=== PATIENT | male | born 1960 | race African-American/Black ===

== ENCOUNTER 2018-03-26 10:59 | Inpatient (IN) ==
[2018-03-30 11:56] VITALS: BP 112/73
== END 2018-03-30 14:30 | disposition home or self-care (01) | DRG 190 ==
LOC: N.ED 10:59 → N.2E 13:57

== ENCOUNTER 2018-05-06 18:27 | Inpatient (IN) ==
[2018-05-06 19:05] LABS: Eosinophils # 0.1 10*3/uL (0.0-0.87); Eosinophils % 1.3 % (0.00-10.9); Hematocrit 47.3 VOL% (42.0-52.0); Hemoglobin 15.9 GM/DL (14.0-18.0); Immature Granulocytes % 0.3 %; Immature Granulocytes Absolute 0.01 #; Lymphocytes # 1.7 10*3/uL (1.4-4.0); Lymphocytes % 42.1 % (21.2-54.2); Mean Corpuscular HGB Conc 33.6 GM/DL (32-36); Mean Corpuscular Hemoglobin 35 PG (27-34); Mean Corpuscular Volume 102.8 FL (87-102); Mean Platelet Volume 9.6 FL (9.6-12.0); Monocytes # 0.8 10*3/uL (0.11-0.8); Monocytes % 20.9 % (1.7-12.7); Neutrophils # 1.4 10*3/uL (1.4-7.4); Neutrophils % 34.4 % (38.7-73.9); Platelet Count 131 T/CUMM (130-400)
[2018-05-06] MEDS ORDERED: ALBUTEROL NEB SOLN 5 MG/ML 20 ML/BOTTLE CONT NEB STA (19:15)
[2018-05-06] MEDS ORDERED: IPRATROPIUM 500 MCG/2.5 ML NEB RESP TX STA (19:15)
[2018-05-06 19:16] LABS: INR 1.1; PT Patient Result 11.1 SECS; Partial Thromboplastin Time 22.2 SECS (0-40)
[2018-05-06 19:29] LABS: Bilirubin,Total 0.5 MG/DL (0.2-1.0); Osmolality,Calculated 271.8 MOS/KG (273-304); Potassium 3.9 MMOL/L (3.5-5.1); Troponin I Only 0.023 NG/ML (0.00-0.045)
[2018-05-06 19:35] LABS: Lymphocytes 48 % (20-55); Platelet Estimate Adequate; Segmented Neutrophils 32 % (50-85); Total Cells Counted 100
[2018-05-06] MEDS ORDERED: methylPREDNISolone SOD SUC 125 MG/2 ML VIAL IV STA (19:56)
[2018-05-06] MEDS ORDERED: LEVOFLOXACIN INJ 750 MG in PREMIX 1 EACH IV STA (19:56)
[2018-05-06] MEDS ORDERED: ACETAMINOPHEN 325 MG TABLET PO PRN (21:14)
[2018-05-06] MEDS ORDERED: ONDANSETRON 4 MG/2 ML VIAL IV PRN (21:14)
[2018-05-06] MEDS ORDERED: ALBUTEROL 2.5 MG/3 ML NEB RESP TX PRN (21:14)
[2018-05-06] MEDS: ENOXAPARIN 40 MG/0.4 ML SYRINGE SUBCUT SCH (23:25)
[2018-05-07] MEDS: ALBUTEROL/IPRATROPIUM 3 ML NEB RESP TX SCH ×4 (00:03→19:50)
[2018-05-07] MEDS: methylPREDNISolone SOD SUC 40 MG/1 ML VIAL IV SCH ×3 (03:54→21:16)
[2018-05-07 07:08] LABS: Basophils % 0.3 % (0.0-0.8); Hematocrit 43.1 VOL% (42.0-52.0); Hemoglobin 14.6 GM/DL (14.0-18.0); Immature Granulocytes % 0.3 %; Immature Granulocytes Absolute 0.01 #; Lymphocytes # 0.2 10*3/uL (1.4-4.0); Lymphocytes % 6.5 % (21.2-54.2); Mean Corpuscular HGB Conc 33.9 GM/DL (32-36); Mean Corpuscular Hemoglobin 35 PG (27-34); Mean Corpuscular Volume 103.1 FL (87-102); Mean Platelet Volume 10.6 FL (9.6-12.0); Monocytes % 1.3 % (1.7-12.7); Neutrophils # 2.8 10*3/uL (1.4-7.4); Neutrophils % 91.6 % (38.7-73.9); Platelet Count 122 T/CUMM (130-400); Red Blood Count 4.18 MC/CUMM (3.8-5.5); Red Cell Distribution Width 12.7 % (9.3-17.3); White Blood Count 3.1 T/CUMM (4-12)
[2018-05-07 07:37] LABS: Albumin 3.7 G/DL (3.4-5.0); Calcium 8.7 MG/DL (8.5-10.1); Hypochromasia 1+; Lymphocytes 4 % (20-55); Nucleated Red Blood Cells 1 (0-5); Osmolality,Calculated 272.1 MOS/KG (273-304); Platelet Estimate Decreased; Segmented Neutrophils 95 % (50-85); Total Cells Counted 100; Total Protein 7.9 G/DL (6.4-8.3)
[2018-05-07] MEDS: amLODIPine 5 MG TABLET PO SCH (09:43)
[2018-05-07] MEDS: FLUTICASONE/SALMETEROL 250-50 DISKUS 14 DOSE INH SCH ×2 (09:43→21:19)
[2018-05-07] MEDS: MULTIVITAMIN (CENTRUM) TABLET PO SCH (09:43)
[2018-05-07] MEDS: FOLIC ACID 1 MG TABLET PO SCH (09:43)
[2018-05-07] MEDS: PANTOPRAZOLE 40 MG TABLET PO SCH (09:43)
[2018-05-07] MEDS: NICOTINE 21 MG/24 HR PATCH TRANSDERM PRN (09:43)
[2018-05-07] MEDS: LISINOPRIL/HCTZ 20-25 MG TABLET PO SCH (09:43)
[2018-05-07] MEDS: THIAMINE 100 MG TABLET PO SCH (09:43)
[2018-05-07] MEDS: ENOXAPARIN 40 MG/0.4 ML SYRINGE SUBCUT SCH (21:16)
[2018-05-08] MEDS: methylPREDNISolone SOD SUC 40 MG/1 ML VIAL IV SCH ×3 (03:47→20:25)
[2018-05-08 07:06] LABS: Basophils % 0.1 % (0.0-0.8); Hematocrit 45.6 VOL% (42.0-52.0); Hemoglobin 15.3 GM/DL (14.0-18.0); Immature Granulocytes % 0.4 %; Immature Granulocytes Absolute 0.07 #; Lymphocytes # 0.3 10*3/uL (1.4-4.0); Mean Corpuscular HGB Conc 33.6 GM/DL (32-36); Mean Corpuscular Hemoglobin 35 PG (27-34); Mean Corpuscular Volume 102.7 FL (87-102); Mean Platelet Volume 10.5 FL (9.6-12.0); Neutrophils # 14.6 10*3/uL (1.4-7.4); Neutrophils % 91.5 % (38.7-73.9); Platelet Count 137 T/CUMM (130-400); Red Blood Count 4.44 MC/CUMM (3.8-5.5); Red Cell Distribution Width 12.7 % (9.3-17.3); White Blood Count 15.9 T/CUMM (4-12)
[2018-05-08 07:26] LABS: Calcium 9.1 MG/DL (8.5-10.1); Osmolality,Calculated 274.8 MOS/KG (273-304); Potassium 3.9 MMOL/L (3.5-5.1)
[2018-05-08 07:51] LABS: Band Neutrophils 3 % (0-10); Lymphocytes 2 % (20-55); Platelet Estimate Decreased; Polychromasia Slight; Segmented Neutrophils 94 % (50-85); Total Cells Counted 100
[2018-05-08] MEDS: ALBUTEROL/IPRATROPIUM 3 ML NEB RESP TX SCH ×4 (07:54→20:06)
[2018-05-08] MEDS: LISINOPRIL/HCTZ 20-25 MG TABLET PO SCH (09:24)
[2018-05-08] MEDS: FOLIC ACID 1 MG TABLET PO SCH (09:25)
[2018-05-08] MEDS: amLODIPine 5 MG TABLET PO SCH (09:25)
[2018-05-08] MEDS: THIAMINE 100 MG TABLET PO SCH (09:25)
[2018-05-08] MEDS: MULTIVITAMIN (CENTRUM) TABLET PO SCH (09:25)
[2018-05-08] MEDS: PANTOPRAZOLE 40 MG TABLET PO SCH (09:25)
[2018-05-08] MEDS: FLUTICASONE/SALMETEROL 250-50 DISKUS 14 DOSE INH SCH ×2 (09:27→20:32)
[2018-05-08] MEDS: NICOTINE 21 MG/24 HR PATCH TRANSDERM PRN (09:30)
[2018-05-08] MEDS: ENOXAPARIN 40 MG/0.4 ML SYRINGE SUBCUT SCH (20:25)
[2018-05-09] MEDS: ALBUTEROL/IPRATROPIUM 3 ML NEB RESP TX SCH ×4 (00:05→20:00)
[2018-05-09] MEDS: methylPREDNISolone SOD SUC 40 MG/1 ML VIAL IV SCH ×2 (04:48→14:22)
[2018-05-09 06:44] LABS: Basophils % 0.1 % (0.0-0.8); Hematocrit 42.2 VOL% (42.0-52.0); Hemoglobin 14.3 GM/DL (14.0-18.0); Immature Granulocytes % 0.7 %; Immature Granulocytes Absolute 0.12 #; Lymphocytes # 0.2 10*3/uL (1.4-4.0); Lymphocytes % 1.5 % (21.2-54.2); Mean Corpuscular HGB Conc 33.9 GM/DL (32-36); Mean Corpuscular Hemoglobin 35 PG (27-34); Mean Corpuscular Volume 103.2 FL (87-102); Mean Platelet Volume 10.2 FL (9.6-12.0); Monocytes # 0.7 10*3/uL (0.11-0.8); Neutrophils # 15.3 10*3/uL (1.4-7.4); Neutrophils % 93.7 % (38.7-73.9); Platelet Count 124 T/CUMM (130-400); Red Blood Count 4.09 MC/CUMM (3.8-5.5); Red Cell Distribution Width 12.9 % (9.3-17.3); White Blood Count 16.4 T/CUMM (4-12)
[2018-05-09 06:58] LABS: Calcium 8.6 MG/DL (8.5-10.1); Potassium 3.7 MMOL/L (3.5-5.1)
[2018-05-09 07:25] LABS: Band Neutrophils 1 % (0-10); Hypochromasia 1+; Lymphocytes 4 % (20-55); Macrocytosis Slight; Segmented Neutrophils 91 % (50-85); Total Cells Counted 100
[2018-05-09] MEDS: LISINOPRIL/HCTZ 20-25 MG TABLET PO SCH (10:53)
[2018-05-09] MEDS: MULTIVITAMIN (CENTRUM) TABLET PO SCH (10:53)
[2018-05-09] MEDS: PANTOPRAZOLE 40 MG TABLET PO SCH (10:53)
[2018-05-09] MEDS: THIAMINE 100 MG TABLET PO SCH (10:54)
[2018-05-09] MEDS: FOLIC ACID 1 MG TABLET PO SCH (10:55)
[2018-05-09] MEDS: FLUTICASONE/SALMETEROL 250-50 DISKUS 14 DOSE INH SCH ×2 (10:59→21:47)
[2018-05-09] MEDS: ENOXAPARIN 40 MG/0.4 ML SYRINGE SUBCUT SCH (21:45)
[2018-05-10] MEDS: ALBUTEROL/IPRATROPIUM 3 ML NEB RESP TX SCH ×2 (01:54→07:11)
[2018-05-10 07:11] LABS: Basophils % 0.1 % (0.0-0.8); Eosinophils % 0.1 % (0.00-10.9); Hematocrit 44.1 VOL% (42.0-52.0); Hemoglobin 14.9 GM/DL (14.0-18.0); Immature Granulocytes % 0.4 %; Immature Granulocytes Absolute 0.04 #; Lymphocytes # 1.4 10*3/uL (1.4-4.0); Lymphocytes % 15.1 % (21.2-54.2); Mean Corpuscular HGB Conc 33.8 GM/DL (32-36); Mean Corpuscular Hemoglobin 34 PG (27-34); Mean Corpuscular Volume 101.8 FL (87-102); Mean Platelet Volume 10.6 FL (9.6-12.0); Monocytes % 11.3 % (1.7-12.7); Neutrophils # 6.6 10*3/uL (1.4-7.4); Platelet Count 128 T/CUMM (130-400); Red Blood Count 4.33 MC/CUMM (3.8-5.5); Red Cell Distribution Width 13.1 % (9.3-17.3)
[2018-05-10] MEDS: MULTIVITAMIN (CENTRUM) TABLET PO SCH (08:50)
[2018-05-10] MEDS: FOLIC ACID 1 MG TABLET PO SCH (08:50)
[2018-05-10] MEDS: THIAMINE 100 MG TABLET PO SCH (08:50)
[2018-05-10] MEDS: PANTOPRAZOLE 40 MG TABLET PO SCH (08:50)
[2018-05-10] MEDS: LISINOPRIL/HCTZ 20-25 MG TABLET PO SCH (08:50)
[2018-05-10] MEDS: FLUTICASONE/SALMETEROL 250-50 DISKUS 14 DOSE INH SCH (08:54)
[2018-05-10] MEDS ORDERED: methylPREDNISolone SOD SUC 40 MG/1 ML VIAL IV SCH (09:00)
[2018-05-10 13:14] VITALS: BP 100/64
== END 2018-05-10 13:10 | disposition home or self-care (01) | DRG 192 ==
LOC: N.ED 18:27 → N.EDINP 21:14 → N.5E 22:22
PROVIDERS: ADMIT Internal Medicine; ATTEND Internal Medicine

== ENCOUNTER 2018-09-09 13:38 | Inpatient (IN) ==
[2018-09-09] MEDS ORDERED: cefTRIAXone 1,000 MG in SODIUM CHLORIDE 0.9% 100 ML IV STA (14:05)
[2018-09-09] MEDS ORDERED: methylPREDNISolone SOD SUC 125 MG/2 ML VIAL IV STA (14:05)
[2018-09-09] MEDS ORDERED: ALBUTEROL 2.5 MG/3 ML NEB RESP TX SCH (14:30)
[2018-09-09] MEDS ORDERED: ALBUTEROL 2.5 MG/3 ML NEB RESP TX PRN (14:48)
[2018-09-09] MEDS ORDERED: methylPREDNISolone SOD SUC 40 MG/1 ML VIAL IV SCH (15:00)
[2018-09-09 15:04] LABS: ABG Base Excess 6.1 MMOL/L (-2.5-2.5); ABG HCO3 29.9 MMOL/L (20-26); ABG Oxygen Saturation 94.2 % (95-100); ABG PH 7.442 (7.35-7.45); ABG PO2 72.7 MM HG (80-95); ABG TCO2 26.4 MMOL/L (23-27)
[2018-09-09 15:08] LABS: Basophils % 0.2 % (0.0-0.8); Eosinophils % 0.1 % (0.00-10.9); Hematocrit 44.2 VOL% (42.0-52.0); Hemoglobin 14.9 GM/DL (14.0-18.0); Immature Granulocytes % 0.6 %; Immature Granulocytes Absolute 0.08 #; Lymphocytes # 0.7 10*3/uL (1.4-4.0); Lymphocytes % 5.2 % (21.2-54.2); Mean Corpuscular HGB Conc 33.7 GM/DL (32-36); Mean Corpuscular Hemoglobin 34 PG (27-34); Mean Corpuscular Volume 100.7 FL (87-102); Mean Platelet Volume 10.2 FL (9.6-12.0); Monocytes # 0.9 10*3/uL (0.11-0.8); Neutrophils # 11.4 10*3/uL (1.4-7.4); Neutrophils % 86.9 % (38.7-73.9); Platelet Count 147 T/CUMM (130-400); Red Blood Count 4.39 MC/CUMM (3.8-5.5); Red Cell Distribution Width 11.9 % (9.3-17.3); White Blood Count 13.1 T/CUMM (4-12)
[2018-09-09] MEDS ORDERED: ACETAMINOPHEN 325 MG TABLET PO PRN (15:11)
[2018-09-09] MEDS ORDERED: guaiFENesin/DM ER 600-30 MG TABLET PO PRN (15:11)
[2018-09-09] MEDS ORDERED: ONDANSETRON 4 MG/2 ML VIAL IV PRN (15:11)
[2018-09-09] MEDS ORDERED: traZODone 50 MG TABLET PO PRN (15:11)
[2018-09-09] MEDS ORDERED: hydrALAZINE 20 MG/1 ML VIAL IV STA (15:11)
[2018-09-09] MEDS ORDERED: diphenhydrAMINE CAP 25 MG CAPSULE PO PRN (15:11)
[2018-09-09] MEDS ORDERED: chlordiazePOXIDE 25 MG CAPSULE PO PRN (15:34)
[2018-09-09 15:38] LABS: Albumin 4.2 G/DL (3.4-5.0); Bilirubin,Total 0.8 MG/DL (0.2-1.0); Calcium 9.5 MG/DL (8.5-10.1); Osmolality,Calculated 267.4 MOS/KG (273-304); Potassium 4.6 MMOL/L (3.5-5.1); Total Protein 9.5 G/DL (6.4-8.3)
[2018-09-09 15:47] LABS: Risk Ratio 2.36; Thyroid Stimulating Hormone 0.574 uIU/ml (0.358-3.74); VLDL CHOLESTEROL 22.8 MG/DL
[2018-09-09] MEDS: SODIUM CHLORIDE 0.9% 1,000 ML IV SCH (16:08)
[2018-09-09] MEDS: LEVOFLOXACIN INJ 750 MG in PREMIX 1 EACH IV SCH (16:11)
[2018-09-09] MEDS: HEPARIN 5,000 UNIT/1 ML VIAL SUBCUT SCH (16:12)
[2018-09-09 16:21] LABS: Folate 8.9 NG/ML (5.4-24.0)
[2018-09-09 17:03] LABS: Apearance,Urine CLEAR (Clear); Bilirubin,Urine Negative (Negative); Blood, Urine Small mg/dL (Negative); Glucose,Urine (UA) Negative (Negative); Hyaline Casts,Urine 3 /LPF (0-3); Ketones,Urine Negative (Negative); Nitrite,Urine Negative (Negative); Protein,Urine 30 MG/DL; RBC,Urine 1 /HPF (0-4); Urine Color Yellow (Yellow); Urine Specific Gravity 1.012 (1.001-1.035); Urine Urobilinogen < 2.0 EU/DL (0.2-1.0); WBC,Urine 1 /HPF (0-6)
[2018-09-09] MEDS ORDERED: AZITHROMYCIN INJ 500 MG in SODIUM CHLORIDE 0.9% 250 ML IV SCH (18:00)
[2018-09-09] MEDS: ALBUTEROL/IPRATROPIUM 3 ML NEB RESP TX SCH (19:07)
[2018-09-09] MEDS: MONTELUKAST 10 MG TABLET PO SCH (22:05)
[2018-09-09] MEDS: methylPREDNISolone SOD SUC 125 MG/2 ML VIAL IV SCH (22:05)
[2018-09-09] MEDS: DOCUSATE SODIUM 100 MG CAPSULE PO SCH (22:05)
[2018-09-09] MEDS: FLUTICASONE/SALMETEROL 250-50 DISKUS 14 DOSE INH SCH (22:05)
[2018-09-09] MEDS: MAGNESIUM SULF RIDER 2 GM in PREMIX 1 EACH IV PRN (22:06)
[2018-09-10] MEDS: MAGNESIUM SULF RIDER 2 GM in PREMIX 1 EACH IV PRN (00:07)
[2018-09-10] MEDS: ALBUTEROL/IPRATROPIUM 3 ML NEB RESP TX SCH ×4 (01:08→19:41)
[2018-09-10] MEDS: HEPARIN 5,000 UNIT/1 ML VIAL SUBCUT SCH ×2 (01:12→08:43)
[2018-09-10 03:22] LABS: Basophils % 0.1 % (0.0-0.8); Hematocrit 41.1 VOL% (42.0-52.0); Hemoglobin 13.9 GM/DL (14.0-18.0); Immature Granulocytes % 1.2 %; Immature Granulocytes Absolute 0.28 #; Lymphocytes # 0.3 10*3/uL (1.4-4.0); Lymphocytes % 1.3 % (21.2-54.2); Mean Corpuscular HGB Conc 33.8 GM/DL (32-36); Mean Corpuscular Hemoglobin 35 PG (27-34); Mean Corpuscular Volume 102.2 FL (87-102); Mean Platelet Volume 10.6 FL (9.6-12.0); Monocytes # 0.3 10*3/uL (0.11-0.8); Monocytes % 1.4 % (1.7-12.7); Neutrophils # 22.2 10*3/uL (1.4-7.4); Platelet Count 129 T/CUMM (130-400); Red Blood Count 4.02 MC/CUMM (3.8-5.5); Red Cell Distribution Width 11.9 % (9.3-17.3); White Blood Count 23.1 T/CUMM (4-12)
[2018-09-10 04:04] LABS: Band Neutrophils 15 % (0-10); Lymphocytes 1 % (20-55); Platelet Estimate Decreased; Segmented Neutrophils 83 % (50-85); Total Cells Counted 100
[2018-09-10 04:17] LABS: Albumin 3.2 G/DL (3.4-5.0); Bilirubin,Total 0.6 MG/DL (0.2-1.0); Calcium 8.3 MG/DL (8.5-10.1); Osmolality,Calculated 270.4 MOS/KG (273-304); Potassium 4.1 MMOL/L (3.5-5.1); Total Protein 7.5 G/DL (6.4-8.3)
[2018-09-10] MEDS: methylPREDNISolone SOD SUC 125 MG/2 ML VIAL IV SCH ×4 (05:08→22:43)
[2018-09-10] MEDS: SODIUM CHLORIDE 0.9% 1,000 ML IV SCH ×2 (06:00→20:12)
[2018-09-10] MEDS: FOLIC ACID 1 MG TABLET PO SCH (08:43)
[2018-09-10] MEDS: DOCUSATE SODIUM 100 MG CAPSULE PO SCH ×2 (08:43→20:13)
[2018-09-10] MEDS: LISINOPRIL/HCTZ 20-25 MG TABLET PO SCH (08:43)
[2018-09-10] MEDS: FLUTICASONE/SALMETEROL 250-50 DISKUS 14 DOSE INH SCH ×2 (08:43→20:12)
[2018-09-10] MEDS: MULTIVITAMIN (CENTRUM) TABLET PO SCH (08:44)
[2018-09-10] MEDS: MONTELUKAST 10 MG TABLET PO SCH ×2 (08:44→20:13)
[2018-09-10] MEDS: PANTOPRAZOLE 40 MG TABLET PO SCH (08:44)
[2018-09-10] MEDS: NICOTINE 21 MG/24 HR PATCH TRANSDERM PRN (09:25)
[2018-09-10] MEDS: AZITHROMYCIN 250 MG TABLET PO SCH (11:46)
[2018-09-10 12:25] LABS: Barbiturates Screen,Urine Negative (Negative); Benzodiazepines Screen,Urine Negative (Negative); Cannabinoid Screen,Urine Negative (Negative); Opiate Screen,Urine Negative (Negative); Phencyclidine Screen,Urine Negative (Negative)
[2018-09-10] MEDS: ENOXAPARIN 40 MG/0.4 ML SYRINGE SUBCUT SCH (13:18)
[2018-09-10] MEDS: LEVOFLOXACIN INJ 750 MG in PREMIX 1 EACH IV SCH (15:05)
[2018-09-10] MEDS: OSELTAMIVIR 75 MG CAPSULE PO SCH ×2 (15:05→20:12)
[2018-09-10] MEDS: DIAZEPAM 5 MG TABLET PO PRN (19:38)
[2018-09-11] MEDS: ALBUTEROL/IPRATROPIUM 3 ML NEB RESP TX SCH ×4 (02:15→19:37)
[2018-09-11 03:26] LABS: Basophils % 0.1 % (0.0-0.8); Hematocrit 39.1 VOL% (42.0-52.0); Hemoglobin 13.4 GM/DL (14.0-18.0); Immature Granulocytes % 1.2 %; Immature Granulocytes Absolute 0.28 #; Lymphocytes # 0.4 10*3/uL (1.4-4.0); Lymphocytes % 1.6 % (21.2-54.2); Mean Corpuscular HGB Conc 34.3 GM/DL (32-36); Mean Corpuscular Hemoglobin 35 PG (27-34); Mean Corpuscular Volume 102.6 FL (87-102); Mean Platelet Volume 11.1 FL (9.6-12.0); Monocytes # 0.9 10*3/uL (0.11-0.8); Monocytes % 3.7 % (1.7-12.7); Neutrophils # 22.2 10*3/uL (1.4-7.4); Neutrophils % 93.4 % (38.7-73.9); Platelet Count 116 T/CUMM (130-400); Red Blood Count 3.81 MC/CUMM (3.8-5.5); Red Cell Distribution Width 11.9 % (9.3-17.3); White Blood Count 23.8 T/CUMM (4-12)
[2018-09-11 03:37] LABS: Calcium 8.6 MG/DL (8.5-10.1); Osmolality,Calculated 276.8 MOS/KG (273-304); Potassium 4.3 MMOL/L (3.5-5.1)
[2018-09-11 04:03] LABS: Band Neutrophils 13 % (0-10); Hypochromasia Slight; Lymphocytes 3 % (20-55); Platelet Estimate Decreased; Segmented Neutrophils 80 % (50-85); Total Cells Counted 100
[2018-09-11 04:04] LABS: Target Cells Few
[2018-09-11] MEDS: methylPREDNISolone SOD SUC 125 MG/2 ML VIAL IV SCH (05:16)
[2018-09-11] MEDS: FLUTICASONE/SALMETEROL 250-50 DISKUS 14 DOSE INH SCH ×2 (09:08→21:15)
[2018-09-11] MEDS: NICOTINE 21 MG/24 HR PATCH TRANSDERM PRN (09:09)
[2018-09-11] MEDS: AZITHROMYCIN 250 MG TABLET PO SCH (09:10)
[2018-09-11] MEDS: OSELTAMIVIR 75 MG CAPSULE PO SCH ×2 (09:10→21:14)
[2018-09-11] MEDS: DIAZEPAM 5 MG TABLET PO PRN ×2 (09:10→18:30)
[2018-09-11] MEDS: PANTOPRAZOLE 40 MG TABLET PO SCH (09:11)
[2018-09-11] MEDS: MULTIVITAMIN (CENTRUM) TABLET PO SCH (09:11)
[2018-09-11] MEDS: DOCUSATE SODIUM 100 MG CAPSULE PO SCH ×2 (09:11→21:14)
[2018-09-11] MEDS: FOLIC ACID 1 MG TABLET PO SCH (09:11)
[2018-09-11] MEDS: MONTELUKAST 10 MG TABLET PO SCH ×2 (09:11→21:14)
[2018-09-11] MEDS: LISINOPRIL/HCTZ 20-25 MG TABLET PO SCH ×2 (09:11→09:14)
[2018-09-11] MEDS: predniSONE 20 MG TABLET PO SCH (10:01)
[2018-09-11] MEDS: SODIUM CHLORIDE 0.9% 1,000 ML IV SCH (12:32)
[2018-09-11] MEDS: ENOXAPARIN 40 MG/0.4 ML SYRINGE SUBCUT SCH (12:32)
[2018-09-11] MEDS: LEVOFLOXACIN INJ 750 MG in PREMIX 1 EACH IV SCH (15:00)
[2018-09-12] MEDS: ALBUTEROL/IPRATROPIUM 3 ML NEB RESP TX SCH ×3 (00:35→14:15)
[2018-09-12 05:11] LABS: Basophils % 0.1 % (0.0-0.8); Hematocrit 37.6 VOL% (42.0-52.0); Hemoglobin 12.6 GM/DL (14.0-18.0); Immature Granulocytes % 0.8 %; Immature Granulocytes Absolute 0.14 #; Lymphocytes # 0.7 10*3/uL (1.4-4.0); Lymphocytes % 4.1 % (21.2-54.2); Mean Corpuscular HGB Conc 33.5 GM/DL (32-36); Mean Corpuscular Hemoglobin 35 PG (27-34); Mean Corpuscular Volume 103.9 FL (87-102); Mean Platelet Volume 10.5 FL (9.6-12.0); Monocytes % 5.4 % (1.7-12.7); Neutrophils # 16.2 10*3/uL (1.4-7.4); Neutrophils % 89.6 % (38.7-73.9); Platelet Count 115 T/CUMM (130-400); Red Blood Count 3.62 MC/CUMM (3.8-5.5); White Blood Count 18.1 T/CUMM (4-12)
[2018-09-12 05:39] LABS: Lymphocytes 7 % (20-55); Polychromasia Few; Segmented Neutrophils 92 % (50-85); Total Cells Counted 100
[2018-09-12 05:40] LABS: Platelet Estimate Decreased
[2018-09-12 05:58] LABS: Calcium 8.6 MG/DL (8.5-10.1); Osmolality,Calculated 278.5 MOS/KG (273-304); Potassium 3.8 MMOL/L (3.5-5.1)
[2018-09-12] MEDS: NICOTINE 21 MG/24 HR PATCH TRANSDERM PRN (10:00)
[2018-09-12] MEDS: predniSONE 20 MG TABLET PO SCH (10:00)
[2018-09-12] MEDS: MONTELUKAST 10 MG TABLET PO SCH (10:00)
[2018-09-12] MEDS: PANTOPRAZOLE 40 MG TABLET PO SCH (10:00)
[2018-09-12] MEDS: OSELTAMIVIR 75 MG CAPSULE PO SCH (10:00)
[2018-09-12] MEDS: FOLIC ACID 1 MG TABLET PO SCH (10:00)
[2018-09-12] MEDS: FLUTICASONE/SALMETEROL 250-50 DISKUS 14 DOSE INH SCH (10:00)
[2018-09-12] MEDS: DOCUSATE SODIUM 100 MG CAPSULE PO SCH (10:00)
[2018-09-12] MEDS: MULTIVITAMIN (CENTRUM) TABLET PO SCH (10:00)
[2018-09-12] MEDS: LISINOPRIL/HCTZ 20-25 MG TABLET PO SCH (10:00)
[2018-09-12] MEDS: DIAZEPAM 5 MG TABLET PO PRN (10:01)
[2018-09-12] MEDS: AZITHROMYCIN 250 MG TABLET PO SCH (10:03)
[2018-09-12] MEDS: ENOXAPARIN 40 MG/0.4 ML SYRINGE SUBCUT SCH (11:32)
[2018-09-12 12:30] VITALS: BP 92/57
== END 2018-09-12 15:02 | disposition home or self-care (01) | DRG 140 ==
LOC: N.ED 13:38 → N.EDINP 14:48 → SUATTDRO 14:48 → N.ICU 15:48 → N.5E 09-11 10:28
PROVIDERS: ATTEND Internal Medicine

== ENCOUNTER 2019-04-27 17:58 | Observation (INO) ==
[2019-04-27 18:28] LABS: Basophils % 0.8 % (0.0-0.8); Eosinophils % 0.8 % (0.00-10.9); Hematocrit 38.5 VOL% (42.0-52.0); Hemoglobin 12.4 GM/DL (14.0-18.0); Immature Granulocytes % 0.3 %; Immature Granulocytes Absolute 0.01 #; Lymphocytes # 1.1 10*3/uL (1.4-4.0); Lymphocytes % 31.7 % (21.2-54.2); Mean Corpuscular HGB Conc 32.2 GM/DL (32-36); Mean Corpuscular Volume 104.9 FL (87-102); Mean Platelet Volume 9.9 FL (9.6-12.0); Monocytes % 12.9 % (1.7-12.7); Neutrophils % 53.5 % (38.7-73.9); Platelet Count 148 T/CUMM (130-400); Red Blood Count 3.67 MC/CUMM (3.8-5.5); Red Cell Distribution Width 12.5 % (9.3-17.3); White Blood Count 3.6 T/CUMM (4-12)
[2019-04-27 18:40] LABS: PT Patient Result 10.5 SECS; Partial Thromboplastin Time 23.8 SECS (0-40)
[2019-04-27 18:49] LABS: Albumin 4.2 G/DL (3.4-5.0); Bilirubin,Total 0.4 MG/DL (0.2-1.0); Calcium 8.8 MG/DL (8.5-10.1); Osmolality,Calculated 266.2 MOS/KG (273-304); Total Protein 7.9 G/DL (6.4-8.3)
[2019-04-27] MEDS ORDERED: ONDANSETRON 4 MG/2 ML VIAL IV STA (19:08)
[2019-04-27] MEDS ORDERED: methylPREDNISolone SOD SUC 125 MG/2 ML VIAL IV STA ×2 (19:08→21:06)
[2019-04-27] MEDS ORDERED: LEVOFLOXACIN INJ 750 MG in PREMIX 1 EACH IV STA (19:08)
[2019-04-27] MEDS ORDERED: ALBUTEROL 2.5 MG/3 ML NEB RESP TX SCH (19:30)
[2019-04-27 20:10] LABS: Troponin I < 0.015 NG/ML (0.00-0.045)
[2019-04-27 20:43] LABS: Barbiturates Screen,Urine Negative (Negative); Benzodiazepines Screen,Urine Negative (Negative); Cannabinoid Screen,Urine Negative (Negative); Opiate Screen,Urine Negative (Negative); Phencyclidine Screen,Urine Negative (Negative)
[2019-04-27 21:05] LABS: Apearance,Urine CLEAR (Clear); Bilirubin,Urine Negative (Negative); Blood, Urine Negative (Negative); Glucose,Urine (UA) Negative (Negative); Hyaline Casts,Urine 14 /LPF (0-3); Ketones,Urine Negative (Negative); Mucus,Urine Occasional /LPF (Occasional); Nitrite,Urine Negative (Negative); Protein,Urine 30 MG/DL; Urine Color Yellow (Yellow); Urine Specific Gravity 1.006 (1.001-1.035); Urine Urobilinogen < 2.0 EU/DL (0.2-1.0); WBC,Urine <1 /HPF (0-6)
[2019-04-27] MEDS ORDERED: MAGNESIUM SULF RIDER 2 GM in PREMIX 1 EACH IV STA (21:06)
[2019-04-27] MEDS: TERBUTALINE 1 MG/1 ML VIAL SUBCUT SCH ×2 (21:35→21:42)
[2019-04-27] MEDS ORDERED: ALBUTEROL NEB SOLN 5 MG/ML 20 ML/BOTTLE CONT NEB STA (22:26)
[2019-04-27] MEDS ORDERED: ONDANSETRON 4 MG/2 ML VIAL IV PRN (23:40)
[2019-04-28] MEDS: ENOXAPARIN 40 MG/0.4 ML SYRINGE SUBCUT SCH ×2 (03:24→23:45)
[2019-04-28 04:46] LABS: Hematocrit 39.2 VOL% (42.0-52.0); Hemoglobin 12.6 GM/DL (14.0-18.0); Immature Granulocytes % 0.3 %; Immature Granulocytes Absolute 0.01 #; Lymphocytes # 0.1 10*3/uL (1.4-4.0); Lymphocytes % 3.6 % (21.2-54.2); Mean Corpuscular HGB Conc 32.1 GM/DL (32-36); Mean Corpuscular Volume 106.2 FL (87-102); Mean Platelet Volume 9.9 FL (9.6-12.0); Monocytes % 0.8 % (1.7-12.7); Neutrophils % 95.3 % (38.7-73.9); Platelet Count 155 T/CUMM (130-400); Red Blood Count 3.69 MC/CUMM (3.8-5.5); Red Cell Distribution Width 12.4 % (9.3-17.3); White Blood Count 3.9 T/CUMM (4-12)
[2019-04-28] MEDS: ALBUTEROL/IPRATROPIUM 3 ML NEB RESP TX SCH ×6 (04:47→23:30)
[2019-04-28] MEDS: LORazepam 1 MG TABLET PO SCH ×2 (04:58→08:21)
[2019-04-28 05:12] LABS: Calcium 9.1 MG/DL (8.5-10.1); Osmolality,Calculated 273.1 MOS/KG (273-304)
[2019-04-28 05:55] LABS: Anisocytosis 1+; Eosinophils 1 % (0-10); Lymphocytes 4 % (20-55); Platelet Estimate Adequate; Segmented Neutrophils 94 % (50-85); Total Cells Counted 100
[2019-04-28] MEDS: PANTOPRAZOLE 40 MG TABLET PO SCH (08:21)
[2019-04-28] MEDS: DOXYCYCLINE HYCLATE 100 MG CAPSULE PO SCH ×2 (08:21→21:16)
[2019-04-28] MEDS: ASPIRIN EC 81 MG TABLET PO SCH (08:25)
[2019-04-28] MEDS ORDERED: predniSONE 20 MG TABLET PO SCH (09:00)
[2019-04-28] MEDS: FLUTICASONE/SALMETEROL 250-50 DISKUS 14 DOSE INH SCH ×2 (10:06→21:17)
[2019-04-28] MEDS: THIAMINE 100 MG TABLET PO SCH (10:07)
[2019-04-28] MEDS: FOLIC ACID 1 MG TABLET PO SCH (10:07)
[2019-04-28] MEDS: methylPREDNISolone SOD SUC 40 MG/1 ML VIAL IV SCH ×2 (10:10→21:22)
[2019-04-28] MEDS: SODIUM CHLORIDE 0.9% 1,000 ML IV SCH ×2 (10:11→17:52)
[2019-04-28] MEDS: TERBUTALINE 1 MG/1 ML VIAL SUBCUT SCH (10:13)
[2019-04-28] MEDS: NICOTINE 21 MG/24 HR PATCH TRANSDERM SCH (12:04)
[2019-04-28] MEDS: chlordiazePOXIDE 25 MG CAPSULE PO SCH ×3 (12:05→21:16)
[2019-04-29] MEDS: SODIUM CHLORIDE 0.9% 1,000 ML IV SCH ×3 (02:18→17:27)
[2019-04-29] MEDS: ALBUTEROL/IPRATROPIUM 3 ML NEB RESP TX SCH ×5 (03:10→19:49)
[2019-04-29] MEDS: THIAMINE 100 MG TABLET PO SCH (08:45)
[2019-04-29] MEDS: NICOTINE 21 MG/24 HR PATCH TRANSDERM SCH (08:46)
[2019-04-29] MEDS: PANTOPRAZOLE 40 MG TABLET PO SCH (08:46)
[2019-04-29] MEDS: DOXYCYCLINE HYCLATE 100 MG CAPSULE PO SCH ×2 (08:46→20:26)
[2019-04-29] MEDS: FLUTICASONE/SALMETEROL 250-50 DISKUS 14 DOSE INH SCH ×2 (08:46→20:27)
[2019-04-29] MEDS: FOLIC ACID 1 MG TABLET PO SCH (08:46)
[2019-04-29] MEDS: ASPIRIN EC 81 MG TABLET PO SCH (08:46)
[2019-04-29] MEDS: methylPREDNISolone SOD SUC 40 MG/1 ML VIAL IV SCH (08:47)
[2019-04-29] MEDS: chlordiazePOXIDE 25 MG CAPSULE PO SCH ×5 (09:44→20:26)
[2019-04-29] MEDS: TAMSULOSIN 0.4 MG CAPSULE PO SCH (14:21)
[2019-04-30] MEDS: ENOXAPARIN 40 MG/0.4 ML SYRINGE SUBCUT SCH (00:01)
[2019-04-30] MEDS: ALBUTEROL/IPRATROPIUM 3 ML NEB RESP TX SCH ×3 (00:04→06:56)
[2019-04-30] MEDS: SODIUM CHLORIDE 0.9% 1,000 ML IV SCH ×2 (00:55→09:34)
[2019-04-30 05:20] LABS: Calcium 8.2 MG/DL (8.5-10.1); Osmolality,Calculated 286.8 MOS/KG (273-304)
[2019-04-30 07:06] VITALS: BP 119/82
[2019-04-30] MEDS: ASPIRIN EC 81 MG TABLET PO SCH (08:29)
[2019-04-30] MEDS: chlordiazePOXIDE 25 MG CAPSULE PO SCH (08:29)
[2019-04-30] MEDS: TAMSULOSIN 0.4 MG CAPSULE PO SCH (08:30)
[2019-04-30] MEDS: NICOTINE 21 MG/24 HR PATCH TRANSDERM SCH (08:30)
[2019-04-30] MEDS: PANTOPRAZOLE 40 MG TABLET PO SCH (08:30)
[2019-04-30] MEDS: FLUTICASONE/SALMETEROL 250-50 DISKUS 14 DOSE INH SCH (08:30)
[2019-04-30] MEDS: FOLIC ACID 1 MG TABLET PO SCH (08:30)
[2019-04-30] MEDS: DOXYCYCLINE HYCLATE 100 MG CAPSULE PO SCH (08:30)
[2019-04-30] MEDS: THIAMINE 100 MG TABLET PO SCH (08:30)
[2019-04-30] MEDS ORDERED: predniSONE 20 MG TABLET PO SCH (09:00)
== END 2019-04-30 10:12 | disposition home or self-care (01) ==
LOC: N.EDINP 17:58 → N.ED 17:58 → SUATTDRO 23:40 → N.2E 04-28 07:49
PROVIDERS: ADMIT Internal Medicine; ATTEND Internal Medicine

== ENCOUNTER 2019-05-06 05:21 | Inpatient (IN) ==
[2019-05-06] MEDS ORDERED: methylPREDNISolone SOD SUC 125 MG/2 ML VIAL IV STA (05:48)
[2019-05-06] MEDS ORDERED: ALBUTEROL/IPRATROPIUM 3 ML NEB RESP TX STA (05:49)
[2019-05-06 06:13] LABS: Basophils % 0.4 % (0.0-0.8); Eosinophils # 0.2 10*3/uL (0.0-0.87); Eosinophils % 3.2 % (0.00-10.9); Hematocrit 39.3 VOL% (42.0-52.0); Hemoglobin 12.4 GM/DL (14.0-18.0); Immature Granulocytes % 0.9 %; Immature Granulocytes Absolute 0.07 #; Lymphocytes # 1.3 10*3/uL (1.4-4.0); Lymphocytes % 17.5 % (21.2-54.2); Mean Corpuscular HGB Conc 31.6 GM/DL (32-36); Mean Corpuscular Volume 109.2 FL (87-102); Mean Platelet Volume 10.5 FL (9.6-12.0); Monocytes % 18.1 % (1.7-12.7); Neutrophils % 59.9 % (38.7-73.9); Platelet Count 151 T/CUMM (130-400); Red Cell Distribution Width 12.4 % (9.3-17.3); White Blood Count 7.5 T/CUMM (4-12)
[2019-05-06 06:17] LABS: ABG Base Excess 4.7 MMOL/L (-2.5-2.5); ABG HCO3 28.6 MMOL/L (20-26); ABG Oxygen Saturation 96.3 % (95-100); ABG TCO2 37.7 MMOL/L (23-27); Allen Test Positive
[2019-05-06 06:20] LABS: ABG PH 7.104 (7.35-7.45)
[2019-05-06 06:30] LABS: Albumin 3.6 G/DL (3.4-5.0); Bilirubin,Total 0.4 MG/DL (0.2-1.0); Calcium 9.2 MG/DL (8.5-10.1); Osmolality,Calculated 287.3 MOS/KG (273-304); Total Protein 7.1 G/DL (6.4-8.3)
[2019-05-06 06:48] LABS: Band Neutrophils 7 % (0-10); Eosinophils 1 % (0-10); Hypochromasia Slight; Lymphocytes 12 % (20-55); Nucleated Red Blood Cells 15 (0-5); Platelet Estimate Decreased; Segmented Neutrophils 67 % (50-85); Total Cells Counted 100
[2019-05-06 06:50] LABS: Polychromasia Few
[2019-05-06] MEDS ORDERED: ALBUTEROL 2.5 MG/3 ML NEB RESP TX SCH (07:00)
[2019-05-06] MEDS ORDERED: ROCURONIUM 100 MG/10 ML VIAL IV ONE (07:44)
[2019-05-06] MEDS ORDERED: PROPOFOL 1,000 MG/100 ML BOTTLE IV ONE (07:44)
[2019-05-06] MEDS ORDERED: ETOMIDATE 20 MG/10 ML VIAL IV ONE (07:44)
[2019-05-06] MEDS ORDERED: PROPOFOL 1,000 MG/100 ML BOTTLE IV SCH ×2 (08:00→12:30)
[2019-05-06] MEDS ORDERED: LEVOFLOXACIN INJ 500 MG in PREMIX 1 EACH IV STA (08:01)
[2019-05-06 08:41] LABS: ABG Base Excess 7.9 MMOL/L (-2.5-2.5); ABG HCO3 31.7 MMOL/L (20-26); ABG Oxygen Saturation 98.4 % (95-100); ABG PH 7.333 (7.35-7.45); ABG TCO2 32.5 MMOL/L (23-27)
[2019-05-06 08:43] LABS: ABG PCO2 69.2 MM HG (35-48)
[2019-05-06] MEDS: LEVOFLOXACIN INJ 500 MG in PREMIX 1 EACH IV SCH (08:55)
[2019-05-06] MEDS: LACTATED RINGERS 1,000 ML IV SCH ×2 (08:55→16:55)
[2019-05-06] MEDS: methylPREDNISolone SOD SUC 40 MG/1 ML VIAL IV SCH ×2 (08:58→20:33)
[2019-05-06] MEDS: ENOXAPARIN 40 MG/0.4 ML SYRINGE SUBCUT SCH (09:00)
[2019-05-06] MEDS ORDERED: DEXMEDETOMIDINE 200 MCG in SODIUM CHLORIDE 0.9% 48 ML IV PRN (09:29)
[2019-05-06 09:36] LABS: Apearance,Urine CLEAR (Clear); Bacteria,Urine Occasional /HPF (Few); Bilirubin,Urine Negative (Negative); Blood, Urine Small mg/dL (Negative); Glucose,Urine (UA) 150 mg/dL (Negative); Hyaline Casts,Urine 1 /LPF (0-3); Ketones,Urine Negative (Negative); Mucus,Urine Occasional /LPF (Occasional); Nitrite,Urine Negative (Negative); Protein,Urine 30 MG/DL; RBC,Urine 1 /HPF (0-4); Squamous Epithelial Cell,Urine Occasional /HPF (0-10); Urine Color Yellow (Yellow); Urine Specific Gravity 1.017 (1.001-1.035); Urine Urobilinogen < 2.0 EU/DL (0.2-1.0); WBC,Urine 1 /HPF (0-6)
[2019-05-06] MEDS: ALBUTEROL/IPRATROPIUM 3 ML NEB RESP TX SCH ×2 (13:00→19:17)
[2019-05-06] MEDS: PROPOFOL 1,000 MG/100 ML BOTTLE IV SCH ×2 (18:45→23:17)
[2019-05-06] MEDS: LORazepam 2 MG/1 ML VIAL IV PRN (22:52)
[2019-05-07] MEDS: ALBUTEROL/IPRATROPIUM 3 ML NEB RESP TX SCH ×4 (00:32→19:21)
[2019-05-07] MEDS: LACTATED RINGERS 1,000 ML IV SCH ×3 (00:58→17:43)
[2019-05-07] MEDS: LORazepam 2 MG/1 ML VIAL IV PRN ×2 (01:00→04:41)
[2019-05-07] MEDS: PROPOFOL 1,000 MG/100 ML BOTTLE IV SCH ×4 (03:58→20:30)
[2019-05-07 04:18] LABS: Hematocrit 34.5 VOL% (42.0-52.0); Hemoglobin 11.2 GM/DL (14.0-18.0); Immature Granulocytes % 0.4 %; Immature Granulocytes Absolute 0.02 #; Lymphocytes # 0.4 10*3/uL (1.4-4.0); Mean Corpuscular HGB Conc 32.5 GM/DL (32-36); Mean Corpuscular Volume 104.9 FL (87-102); Mean Platelet Volume 10.6 FL (9.6-12.0); Monocytes % 11.6 % (1.7-12.7); Platelet Count 137 T/CUMM (130-400); Red Blood Count 3.29 MC/CUMM (3.8-5.5); Red Cell Distribution Width 12.4 % (9.3-17.3); White Blood Count 4.7 T/CUMM (4-12)
[2019-05-07 04:35] LABS: Calcium 9.3 MG/DL (8.5-10.1); Osmolality,Calculated 283.3 MOS/KG (273-304)
[2019-05-07] MEDS: ENOXAPARIN 40 MG/0.4 ML SYRINGE SUBCUT SCH (09:05)
[2019-05-07] MEDS: methylPREDNISolone SOD SUC 40 MG/1 ML VIAL IV SCH ×2 (09:05→21:20)
[2019-05-07] MEDS: LEVOFLOXACIN INJ 500 MG in PREMIX 1 EACH IV SCH (09:06)
[2019-05-07 12:27] LABS: ABG Base Excess 7.5 MMOL/L (-2.5-2.5); ABG HCO3 31.3 MMOL/L (20-26); ABG Oxygen Saturation 98.2 % (95-100); ABG PCO2 44.5 MM HG (35-48); ABG PH 7.468 (7.35-7.45); ABG TCO2 28.4 MMOL/L (23-27); Allen Test Positive; Pt O2 Delivery Device Ventilator
[2019-05-07] MEDS ORDERED: MORPHINE 4 MG/1 ML VIAL IV PRN (20:07)
[2019-05-07] MEDS ORDERED: hydrALAZINE 20 MG/1 ML VIAL IV PRN (20:07)
[2019-05-08] MEDS: ALBUTEROL/IPRATROPIUM 3 ML NEB RESP TX SCH ×4 (01:25→19:59)
[2019-05-08] MEDS: PROPOFOL 1,000 MG/100 ML BOTTLE IV SCH ×6 (02:05→21:31)
[2019-05-08] MEDS: LACTATED RINGERS 1,000 ML IV SCH ×3 (02:05→20:09)
[2019-05-08 03:43] LABS: Hematocrit 33.4 VOL% (42.0-52.0); Hemoglobin 11.2 GM/DL (14.0-18.0); Immature Granulocytes % 0.8 %; Immature Granulocytes Absolute 0.04 #; Lymphocytes # 0.5 10*3/uL (1.4-4.0); Lymphocytes % 8.7 % (21.2-54.2); Mean Corpuscular HGB Conc 33.5 GM/DL (32-36); Mean Corpuscular Volume 103.4 FL (87-102); Mean Platelet Volume 10.7 FL (9.6-12.0); Monocytes % 7.7 % (1.7-12.7); Neutrophils % 82.8 % (38.7-73.9); Platelet Count 131 T/CUMM (130-400); Red Blood Count 3.23 MC/CUMM (3.8-5.5); Red Cell Distribution Width 12.9 % (9.3-17.3); White Blood Count 5.3 T/CUMM (4-12)
[2019-05-08 04:00] LABS: Osmolality,Calculated 278.5 MOS/KG (273-304)
[2019-05-08 04:25] LABS: ABG Base Excess 4.3 MMOL/L (-2.5-2.5); ABG HCO3 28.3 MMOL/L (20-26); ABG Oxygen Saturation 99.2 % (95-100); ABG PCO2 49.3 MM HG (35-48); ABG PH 7.394 (7.35-7.45); ABG TCO2 26.7 MMOL/L (23-27); Pt O2 Delivery Device Ventilator
[2019-05-08] MEDS: LORazepam 2 MG/1 ML VIAL IV PRN (08:34)
[2019-05-08] MEDS: methylPREDNISolone SOD SUC 40 MG/1 ML VIAL IV SCH ×2 (08:52→20:21)
[2019-05-08] MEDS: LEVOFLOXACIN INJ 500 MG in PREMIX 1 EACH IV SCH (08:53)
[2019-05-08] MEDS: ENOXAPARIN 40 MG/0.4 ML SYRINGE SUBCUT SCH (08:53)
[2019-05-08] MEDS ORDERED: MAGNESIUM SULF RIDER 2 GM in PREMIX 1 EACH IV ONE (10:06)
[2019-05-08] MEDS ORDERED: DEXTROSE 50% 25 GM/50 ML VIAL IV PRN (12:35)
[2019-05-08] MEDS ORDERED: GLUCAGON 1 MG VIAL IM PRN (12:35)
[2019-05-08] MEDS: INSULIN REGULAR 100 UNIT/ML SUBCUT SCH (19:04)
[2019-05-09] MEDS: INSULIN REGULAR 100 UNIT/ML SUBCUT SCH ×5 (00:25→23:26)
[2019-05-09] MEDS: ALBUTEROL/IPRATROPIUM 3 ML NEB RESP TX SCH ×4 (01:22→19:31)
[2019-05-09] MEDS: PROPOFOL 1,000 MG/100 ML BOTTLE IV SCH ×5 (01:33→20:58)
[2019-05-09 03:57] LABS: ABG Base Excess 7.2 MMOL/L (-2.5-2.5); ABG Oxygen Saturation 96.9 % (95-100); ABG PCO2 43.9 MM HG (35-48); ABG PH 7.468 (7.35-7.45); ABG PO2 91.6 MM HG (80-95); ABG TCO2 27.7 MMOL/L (23-27); Allen Test Positive; Pt O2 Delivery Device Ventilator
[2019-05-09] MEDS: LACTATED RINGERS 1,000 ML IV SCH ×3 (03:58→21:42)
[2019-05-09 04:41] LABS: Prealbumin 19.9 MG/DL (20-40)
[2019-05-09] MEDS: methylPREDNISolone SOD SUC 40 MG/1 ML VIAL IV SCH ×2 (08:47→20:58)
[2019-05-09] MEDS: ENOXAPARIN 40 MG/0.4 ML SYRINGE SUBCUT SCH (08:47)
[2019-05-09] MEDS: LEVOFLOXACIN INJ 500 MG in PREMIX 1 EACH IV SCH (08:48)
[2019-05-10] MEDS: ALBUTEROL/IPRATROPIUM 3 ML NEB RESP TX SCH ×4 (00:55→19:54)
[2019-05-10] MEDS: PROPOFOL 1,000 MG/100 ML BOTTLE IV SCH ×4 (02:37→20:31)
[2019-05-10 04:05] LABS: ABG Base Excess 6.7 MMOL/L (-2.5-2.5); ABG HCO3 31.8 MMOL/L (20-26); ABG Oxygen Saturation 96.7 % (95-100); ABG PCO2 47.5 MM HG (35-48); ABG PH 7.443 (7.35-7.45); ABG TCO2 33.2 MMOL/L (23-27); Allen Test Positive; Pt O2 Delivery Device Ventilator
[2019-05-10] MEDS: LACTATED RINGERS 1,000 ML IV SCH ×3 (05:24→22:39)
[2019-05-10] MEDS: INSULIN REGULAR 100 UNIT/ML SUBCUT SCH ×3 (06:14→18:26)
[2019-05-10 09:26] LABS: Basophils % 0.1 % (0.0-0.8); Hematocrit 30.2 VOL% (42.0-52.0); Hemoglobin 9.8 GM/DL (14.0-18.0); Immature Granulocytes % 0.5 %; Immature Granulocytes Absolute 0.05 #; Lymphocytes # 1.3 10*3/uL (1.4-4.0); Mean Corpuscular HGB Conc 32.5 GM/DL (32-36); Mean Corpuscular Volume 104.9 FL (87-102); Mean Platelet Volume 10.1 FL (9.6-12.0); Neutrophils % 79.4 % (38.7-73.9); Red Blood Count 2.88 MC/CUMM (3.8-5.5); Red Cell Distribution Width 12.7 % (9.3-17.3); White Blood Count 10.4 T/CUMM (4-12)
[2019-05-10] MEDS: ENOXAPARIN 40 MG/0.4 ML SYRINGE SUBCUT SCH (09:32)
[2019-05-10] MEDS: methylPREDNISolone SOD SUC 40 MG/1 ML VIAL IV SCH ×2 (09:32→20:57)
[2019-05-10] MEDS: LEVOFLOXACIN INJ 500 MG in PREMIX 1 EACH IV SCH (09:32)
[2019-05-10 09:39] LABS: Calcium 8.7 MG/DL (8.5-10.1)
[2019-05-10 09:41] LABS: Platelet Count 102 T/CUMM (130-400)
[2019-05-10] MEDS ORDERED: POLYETHYLENE GLYCOL POWDER 17 GM PACK PO PRN (20:59)
[2019-05-11] MEDS: INSULIN REGULAR 100 UNIT/ML SUBCUT SCH ×2 (00:31→06:16)
[2019-05-11] MEDS: ALBUTEROL/IPRATROPIUM 3 ML NEB RESP TX SCH ×4 (00:32→19:48)
[2019-05-11] MEDS: PROPOFOL 1,000 MG/100 ML BOTTLE IV SCH ×2 (00:41→05:48)
[2019-05-11 03:41] LABS: ABG Base Excess 6.6 MMOL/L (-2.5-2.5); ABG HCO3 30.4 MMOL/L (20-26); ABG Oxygen Saturation 97.9 % (95-100); ABG PCO2 41.2 MM HG (35-48); ABG PO2 97.6 MM HG (80-95); ABG TCO2 27.5 MMOL/L (23-27)
[2019-05-11] MEDS: LACTATED RINGERS 1,000 ML IV SCH ×3 (05:33→16:00)
[2019-05-11] MEDS: ENOXAPARIN 40 MG/0.4 ML SYRINGE SUBCUT SCH (10:10)
[2019-05-11] MEDS: LEVOFLOXACIN INJ 500 MG in PREMIX 1 EACH IV SCH (10:11)
[2019-05-11] MEDS: methylPREDNISolone SOD SUC 40 MG/1 ML VIAL IV SCH ×2 (10:11→21:37)
[2019-05-11] MEDS: LORazepam 2 MG/1 ML VIAL IV PRN (11:50)
[2019-05-11] MEDS: PRIMIDONE 50 MG TABLET PO SCH (21:38)
[2019-05-12] MEDS: ALBUTEROL/IPRATROPIUM 3 ML NEB RESP TX SCH ×4 (00:51→20:11)
[2019-05-12] MEDS: LORazepam 2 MG/1 ML VIAL IV PRN ×2 (01:29→08:51)
[2019-05-12 05:26] LABS: Calcium 8.6 MG/DL (8.5-10.1); Osmolality,Calculated 283.3 MOS/KG (273-304)
[2019-05-12 05:27] LABS: Basophils % 0.1 % (0.0-0.8); Hemoglobin 11.2 GM/DL (14.0-18.0); Immature Granulocytes % 0.5 %; Immature Granulocytes Absolute 0.06 #; Lymphocytes # 0.5 10*3/uL (1.4-4.0); Lymphocytes % 4.4 % (21.2-54.2); Mean Corpuscular HGB Conc 33.9 GM/DL (32-36); Mean Corpuscular Volume 103.1 FL (87-102); Mean Platelet Volume 11.6 FL (9.6-12.0); Monocytes % 3.9 % (1.7-12.7); Neutrophils % 91.1 % (38.7-73.9); Platelet Count 102 T/CUMM (130-400); White Blood Count 11.7 T/CUMM (4-12)
[2019-05-12 05:58] LABS: Anisocytosis 1+; Lymphocytes 8 % (20-55); Platelet Estimate Decreased; Segmented Neutrophils 92 % (50-85); Total Cells Counted 100
[2019-05-12] MEDS ORDERED: FUROSEMIDE 40 MG/4 ML VIAL IV ONE (07:57)
[2019-05-12] MEDS: LACTATED RINGERS 1,000 ML IV SCH ×3 (08:00→14:34)
[2019-05-12] MEDS ORDERED: LORazepam 2 MG/1 ML VIAL ONE (08:34)
[2019-05-12] MEDS: LEVOFLOXACIN INJ 500 MG in PREMIX 1 EACH IV SCH (08:50)
[2019-05-12] MEDS: ENOXAPARIN 40 MG/0.4 ML SYRINGE SUBCUT SCH (08:50)
[2019-05-12] MEDS: methylPREDNISolone SOD SUC 40 MG/1 ML VIAL IV SCH ×2 (08:51→21:19)
[2019-05-12] MEDS: ACETAMINOPHEN 325 MG TABLET PO PRN (15:12)
[2019-05-12] MEDS: PRIMIDONE 50 MG TABLET PO SCH (21:19)
[2019-05-13] MEDS: ALBUTEROL/IPRATROPIUM 3 ML NEB RESP TX SCH ×4 (01:12→19:33)
[2019-05-13 05:14] LABS: Basophils % 0.1 % (0.0-0.8); Hematocrit 31.4 VOL% (42.0-52.0); Hemoglobin 10.4 GM/DL (14.0-18.0); Immature Granulocytes % 0.2 %; Immature Granulocytes Absolute 0.02 #; Lymphocytes # 0.4 10*3/uL (1.4-4.0); Lymphocytes % 4.1 % (21.2-54.2); Mean Corpuscular HGB Conc 33.1 GM/DL (32-36); Mean Platelet Volume 10.7 FL (9.6-12.0); Monocytes % 5.8 % (1.7-12.7); Neutrophils % 89.8 % (38.7-73.9); Platelet Count 156 T/CUMM (130-400); Red Blood Count 3.02 MC/CUMM (3.8-5.5); Red Cell Distribution Width 11.9 % (9.3-17.3); White Blood Count 9.1 T/CUMM (4-12)
[2019-05-13 05:17] LABS: Calcium 8.7 MG/DL (8.5-10.1); Osmolality,Calculated 281.5 MOS/KG (273-304)
[2019-05-13 05:33] LABS: Prealbumin 20.8 MG/DL (20-40)
[2019-05-13 05:52] LABS: Lymphocytes 3 % (20-55); Segmented Neutrophils 89 % (50-85); Total Cells Counted 100
[2019-05-13 05:53] LABS: Anisocytosis Slight; Macrocytosis Slight
[2019-05-13 05:55] LABS: Platelet Estimate Normal
[2019-05-13] MEDS: ENOXAPARIN 40 MG/0.4 ML SYRINGE SUBCUT SCH (08:21)
[2019-05-13] MEDS: LEVOFLOXACIN INJ 500 MG in PREMIX 1 EACH IV SCH (08:21)
[2019-05-13] MEDS: methylPREDNISolone SOD SUC 40 MG/1 ML VIAL IV SCH ×2 (08:21→20:55)
[2019-05-13] MEDS: LACTATED RINGERS 1,000 ML IV SCH (13:03)
[2019-05-13 13:52] LABS: Folate 3.5 NG/ML (5.4-24.0)
[2019-05-13] MEDS: THIAMINE 100 MG TABLET PO SCH (14:29)
[2019-05-13] MEDS: MULTIVITAMIN (PRENATAL) TABLET PO SCH (14:29)
[2019-05-13] MEDS: FOLIC ACID 1 MG TABLET PO SCH (14:29)
[2019-05-13] MEDS: FUROSEMIDE 40 MG/4 ML VIAL IV SCH (14:53)
[2019-05-13] MEDS: ACETAMINOPHEN 325 MG TABLET PO PRN (20:55)
[2019-05-13] MEDS: PRIMIDONE 50 MG TABLET PO SCH (20:55)
[2019-05-14] MEDS: ALBUTEROL/IPRATROPIUM 3 ML NEB RESP TX SCH ×4 (00:43→19:26)
[2019-05-14 04:51] LABS: Basophils % 0.2 % (0.0-0.8); Eosinophils % 0.1 % (0.00-10.9); Hematocrit 31.7 VOL% (42.0-52.0); Hemoglobin 10.2 GM/DL (14.0-18.0); Immature Granulocytes % 0.6 %; Immature Granulocytes Absolute 0.07 #; Lymphocytes # 0.4 10*3/uL (1.4-4.0); Lymphocytes % 2.8 % (21.2-54.2); Mean Corpuscular HGB Conc 32.2 GM/DL (32-36); Mean Platelet Volume 10.4 FL (9.6-12.0); Monocytes % 4.4 % (1.7-12.7); Neutrophils % 91.9 % (38.7-73.9); Platelet Count 155 T/CUMM (130-400); Red Blood Count 2.99 MC/CUMM (3.8-5.5); White Blood Count 12.6 T/CUMM (4-12)
[2019-05-14 05:15] LABS: Calcium 8.6 MG/DL (8.5-10.1); Osmolality,Calculated 277.7 MOS/KG (273-304)
[2019-05-14 05:50] LABS: Hypochromasia 1+; Lymphocytes 5 % (20-55); Platelet Estimate Adequate; Segmented Neutrophils 89 % (50-85); Total Cells Counted 100
[2019-05-14] MEDS: ENOXAPARIN 40 MG/0.4 ML SYRINGE SUBCUT SCH (08:36)
[2019-05-14] MEDS: MULTIVITAMIN (PRENATAL) TABLET PO SCH (08:36)
[2019-05-14] MEDS: FOLIC ACID 1 MG TABLET PO SCH (08:36)
[2019-05-14] MEDS: THIAMINE 100 MG TABLET PO SCH (08:36)
[2019-05-14] MEDS: methylPREDNISolone SOD SUC 40 MG/1 ML VIAL IV SCH ×2 (09:30→21:00)
[2019-05-14] MEDS: FUROSEMIDE 40 MG/4 ML VIAL IV SCH (09:45)
[2019-05-14] MEDS: LEVOFLOXACIN INJ 500 MG in PREMIX 1 EACH IV SCH (11:45)
[2019-05-14] MEDS: PIPERACILLIN/TAZOBACTAM 3,375 MG in SODIUM CHLORIDE 0.9% 100 ML IV SCH ×2 (13:04→21:00)
[2019-05-14] MEDS ORDERED: PHENOL 1.4% THROAT SPRAY 177 ML BOTTLE PO PRN (20:49)
[2019-05-14] MEDS: PRIMIDONE 50 MG TABLET PO SCH (21:00)
[2019-05-15] MEDS: ALBUTEROL/IPRATROPIUM 3 ML NEB RESP TX SCH ×4 (00:25→20:24)
[2019-05-15] MEDS: PIPERACILLIN/TAZOBACTAM 3,375 MG in SODIUM CHLORIDE 0.9% 100 ML IV SCH ×3 (04:17→21:09)
[2019-05-15 05:04] LABS: Basophils % 0.1 % (0.0-0.8); Hematocrit 29.1 VOL% (42.0-52.0); Hemoglobin 9.4 GM/DL (14.0-18.0); Immature Granulocytes % 0.8 %; Lymphocytes # 0.4 10*3/uL (1.4-4.0); Lymphocytes % 2.7 % (21.2-54.2); Mean Corpuscular HGB Conc 32.3 GM/DL (32-36); Mean Corpuscular Volume 105.4 FL (87-102); Mean Platelet Volume 10.2 FL (9.6-12.0); Monocytes % 6.3 % (1.7-12.7); Neutrophils % 90.1 % (38.7-73.9); Platelet Count 160 T/CUMM (130-400); Red Blood Count 2.76 MC/CUMM (3.8-5.5); Red Cell Distribution Width 11.9 % (9.3-17.3); White Blood Count 13.2 T/CUMM (4-12)
[2019-05-15 05:27] LABS: Albumin 2.5 G/DL (3.4-5.0); Calcium 8.8 MG/DL (8.5-10.1); Osmolality,Calculated 275.8 MOS/KG (273-304)
[2019-05-15 05:39] LABS: Hypochromasia 1+; Lymphocytes 1 % (20-55); Platelet Estimate Adequate; Segmented Neutrophils 93 % (50-85); Total Cells Counted 100
[2019-05-15] MEDS: MULTIVITAMIN (PRENATAL) TABLET PO SCH (08:43)
[2019-05-15] MEDS: ENOXAPARIN 40 MG/0.4 ML SYRINGE SUBCUT SCH (08:43)
[2019-05-15] MEDS: FOLIC ACID 1 MG TABLET PO SCH (08:43)
[2019-05-15] MEDS: FUROSEMIDE 40 MG/4 ML VIAL IV SCH (08:44)
[2019-05-15] MEDS: THIAMINE 100 MG TABLET PO SCH (08:44)
[2019-05-15] MEDS: methylPREDNISolone SOD SUC 40 MG/1 ML VIAL IV SCH ×2 (08:47→21:06)
[2019-05-15] MEDS: LEVOFLOXACIN INJ 500 MG in PREMIX 1 EACH IV SCH (11:53)
[2019-05-15] MEDS: PRIMIDONE 50 MG TABLET PO SCH (21:05)
[2019-05-16] MEDS: ALBUTEROL/IPRATROPIUM 3 ML NEB RESP TX SCH ×4 (01:27→19:10)
[2019-05-16] MEDS: PIPERACILLIN/TAZOBACTAM 3,375 MG in SODIUM CHLORIDE 0.9% 100 ML IV SCH ×3 (04:37→20:59)
[2019-05-16] MEDS: FOLIC ACID 1 MG TABLET PO SCH (09:06)
[2019-05-16] MEDS: THIAMINE 100 MG TABLET PO SCH (09:06)
[2019-05-16] MEDS: MULTIVITAMIN (PRENATAL) TABLET PO SCH (09:06)
[2019-05-16] MEDS: ENOXAPARIN 40 MG/0.4 ML SYRINGE SUBCUT SCH (09:06)
[2019-05-16] MEDS: FUROSEMIDE 40 MG/4 ML VIAL IV SCH (10:45)
[2019-05-16] MEDS: methylPREDNISolone SOD SUC 40 MG/1 ML VIAL IV SCH ×2 (10:45→21:00)
[2019-05-16] MEDS: LEVOFLOXACIN INJ 500 MG in PREMIX 1 EACH IV SCH (11:48)
[2019-05-16] MEDS: PRIMIDONE 50 MG TABLET PO SCH (21:07)
[2019-05-17] MEDS: ALBUTEROL/IPRATROPIUM 3 ML NEB RESP TX SCH ×4 (01:05→19:24)
[2019-05-17] MEDS: PIPERACILLIN/TAZOBACTAM 3,375 MG in SODIUM CHLORIDE 0.9% 100 ML IV SCH ×3 (04:15→20:49)
[2019-05-17 04:47] LABS: Basophils % 0.2 % (0.0-0.8); Hematocrit 30.6 VOL% (42.0-52.0); Hemoglobin 9.8 GM/DL (14.0-18.0); Immature Granulocytes % 0.9 %; Immature Granulocytes Absolute 0.09 #; Lymphocytes # 0.4 10*3/uL (1.4-4.0); Lymphocytes % 3.6 % (21.2-54.2); Mean Corpuscular Volume 106.3 FL (87-102); Mean Platelet Volume 9.9 FL (9.6-12.0); Monocytes % 5.8 % (1.7-12.7); Neutrophils % 89.5 % (38.7-73.9); Platelet Count 219 T/CUMM (130-400); Red Blood Count 2.88 MC/CUMM (3.8-5.5); Red Cell Distribution Width 11.7 % (9.3-17.3); White Blood Count 10.3 T/CUMM (4-12)
[2019-05-17 04:54] LABS: PT Patient Result 10.8 SECS; Partial Thromboplastin Time 23.2 SECS (0-40)
[2019-05-17 06:11] LABS: Band Neutrophils 4 % (0-10); Lymphocytes 6 % (20-55); Platelet Estimate Normal; Segmented Neutrophils 87 % (50-85); Total Cells Counted 100
[2019-05-17 06:12] LABS: Anisocytosis Slight; Macrocytosis 1+
[2019-05-17] MEDS ORDERED: diphenhydrAMINE 50 MG/1 ML VIAL IM ONE (08:00)
[2019-05-17] MEDS ORDERED: MEPERIDINE 50 MG/1 ML VIAL IM ONE (08:00)
[2019-05-17] MEDS ORDERED: BENZONATATE 100 MG CAPSULE PO ONE (08:00)
[2019-05-17] MEDS ORDERED: MIDAZOLAM 2 MG/2 ML VIAL ONE (08:26)
[2019-05-17] MEDS ORDERED: LIDOCAINE 2% 20 ML VIAL RESP TX ONE (08:30)
[2019-05-17] MEDS ORDERED: LIDOCAINE 1% 20 ML VIAL MISC INJ ONE (08:30)
[2019-05-17] MEDS ORDERED: LIDOCAINE 2% VISCOUS 100 ML BOTTLE SWISH/SPIT ONE (08:30)
[2019-05-17] MEDS: MULTIVITAMIN (PRENATAL) TABLET PO SCH (08:40)
[2019-05-17] MEDS: THIAMINE 100 MG TABLET PO SCH (08:40)
[2019-05-17] MEDS: FOLIC ACID 1 MG TABLET PO SCH (08:40)
[2019-05-17] MEDS ORDERED: MIDAZOLAM 2 MG/2 ML VIAL IV ONE ×2 (08:45→08:55)
[2019-05-17] MEDS ORDERED: EPINEPHrine 1 MG/ML VIAL ONE (09:45)
[2019-05-17] MEDS: ENOXAPARIN 40 MG/0.4 ML SYRINGE SUBCUT SCH (09:48)
[2019-05-17] MEDS: FUROSEMIDE 40 MG/4 ML VIAL IV SCH (10:00)
[2019-05-17] MEDS: methylPREDNISolone SOD SUC 40 MG/1 ML VIAL IV SCH ×2 (10:00→20:46)
[2019-05-17] MEDS: LEVOFLOXACIN INJ 500 MG in PREMIX 1 EACH IV SCH (11:29)
[2019-05-17] MEDS: PRIMIDONE 50 MG TABLET PO SCH (20:50)
[2019-05-18] MEDS: ALBUTEROL/IPRATROPIUM 3 ML NEB RESP TX SCH ×4 (00:55→19:40)
[2019-05-18] MEDS: PIPERACILLIN/TAZOBACTAM 3,375 MG in SODIUM CHLORIDE 0.9% 100 ML IV SCH ×3 (03:41→19:35)
[2019-05-18] MEDS: MULTIVITAMIN (PRENATAL) TABLET PO SCH (09:28)
[2019-05-18] MEDS: FOLIC ACID 1 MG TABLET PO SCH (09:28)
[2019-05-18] MEDS: FUROSEMIDE 40 MG/4 ML VIAL IV SCH (09:28)
[2019-05-18] MEDS: THIAMINE 100 MG TABLET PO SCH (09:28)
[2019-05-18] MEDS: methylPREDNISolone SOD SUC 40 MG/1 ML VIAL IV SCH ×2 (09:33→21:27)
[2019-05-18] MEDS: ENOXAPARIN 40 MG/0.4 ML SYRINGE SUBCUT SCH (09:34)
[2019-05-18] MEDS: LEVOFLOXACIN INJ 500 MG in PREMIX 1 EACH IV SCH (11:22)
[2019-05-18] MEDS: PRIMIDONE 50 MG TABLET PO SCH (21:27)
[2019-05-19] MEDS: ALBUTEROL/IPRATROPIUM 3 ML NEB RESP TX SCH ×4 (01:08→18:40)
[2019-05-19] MEDS: PIPERACILLIN/TAZOBACTAM 3,375 MG in SODIUM CHLORIDE 0.9% 100 ML IV SCH ×2 (04:05→12:19)
[2019-05-19] MEDS: ENOXAPARIN 40 MG/0.4 ML SYRINGE SUBCUT SCH (08:37)
[2019-05-19] MEDS: FOLIC ACID 1 MG TABLET PO SCH (08:37)
[2019-05-19] MEDS: MULTIVITAMIN (PRENATAL) TABLET PO SCH (08:37)
[2019-05-19] MEDS: FUROSEMIDE 40 MG/4 ML VIAL IV SCH (08:38)
[2019-05-19] MEDS: THIAMINE 100 MG TABLET PO SCH (08:38)
[2019-05-19] MEDS: methylPREDNISolone SOD SUC 40 MG/1 ML VIAL IV SCH ×2 (08:42→20:41)
[2019-05-19] MEDS: LEVOFLOXACIN INJ 500 MG in PREMIX 1 EACH IV SCH (11:11)
[2019-05-19] MEDS: NICOTINE 21 MG/24 HR PATCH TRANSDERM PRN (11:50)
[2019-05-19] MEDS: PRIMIDONE 50 MG TABLET PO SCH (20:41)
[2019-05-20] MEDS: ALBUTEROL/IPRATROPIUM 3 ML NEB RESP TX SCH ×4 (00:05→18:45)
[2019-05-20] MEDS: FUROSEMIDE 40 MG/4 ML VIAL IV SCH (09:33)
[2019-05-20] MEDS: FOLIC ACID 1 MG TABLET PO SCH (09:33)
[2019-05-20] MEDS: MULTIVITAMIN (PRENATAL) TABLET PO SCH (09:33)
[2019-05-20] MEDS: THIAMINE 100 MG TABLET PO SCH (09:33)
[2019-05-20] MEDS: methylPREDNISolone SOD SUC 40 MG/1 ML VIAL IV SCH (09:33)
[2019-05-20] MEDS: ENOXAPARIN 40 MG/0.4 ML SYRINGE SUBCUT SCH (09:40)
[2019-05-20] MEDS: NICOTINE 21 MG/24 HR PATCH TRANSDERM PRN (14:04)
[2019-05-20] MEDS: PRIMIDONE 50 MG TABLET PO SCH (21:50)
[2019-05-21] MEDS: ALBUTEROL/IPRATROPIUM 3 ML NEB RESP TX SCH ×2 (00:40→07:35)
[2019-05-21 04:14] LABS: Basophils % 0.4 % (0.0-0.8); Eosinophils # 0.2 10*3/uL (0.0-0.87); Eosinophils % 1.3 % (0.00-10.9); Hemoglobin 9.3 GM/DL (14.0-18.0); Immature Granulocytes % 4.4 %; Immature Granulocytes Absolute 0.49 #; Lymphocytes # 1.8 10*3/uL (1.4-4.0); Lymphocytes % 16.5 % (21.2-54.2); Mean Corpuscular HGB Conc 32.1 GM/DL (32-36); Mean Corpuscular Volume 106.2 FL (87-102); Mean Platelet Volume 9.4 FL (9.6-12.0); Monocytes % 10.3 % (1.7-12.7); NRBC # 0.02 10*3/uL; Neutrophils % 67.1 % (38.7-73.9); Platelet Count 284 T/CUMM (130-400); Red Blood Count 2.73 MC/CUMM (3.8-5.5); Red Cell Distribution Width 12.4 % (9.3-17.3); White Blood Count 11.2 T/CUMM (4-12)
[2019-05-21 04:38] LABS: Calcium 9.1 MG/DL (8.5-10.1); Osmolality,Calculated 276.5 MOS/KG (273-304)
[2019-05-21] MEDS ORDERED: predniSONE 20 MG TABLET PO SCH (09:00)
[2019-05-21] MEDS: MULTIVITAMIN (PRENATAL) TABLET PO SCH (09:31)
[2019-05-21] MEDS: FOLIC ACID 1 MG TABLET PO SCH (09:31)
[2019-05-21] MEDS: THIAMINE 100 MG TABLET PO SCH (09:31)
[2019-05-21] MEDS: FUROSEMIDE 40 MG/4 ML VIAL IV SCH (09:31)
[2019-05-21] MEDS: ENOXAPARIN 40 MG/0.4 ML SYRINGE SUBCUT SCH (09:35)
[2019-05-21 11:13] VITALS: BP 117/76
== END 2019-05-21 15:51 | disposition home or self-care (01) | DRG 166 ==
LOC: EDUNIT# → EDBD → N.ED 05:21 → SUATTDRO 08:29 → N.EDINP 08:29 → N.CC 17:49 → N.5E 05-12 16:50
PROVIDERS: ADMIT Internal Medicine Geriatric Medicine; ATTEND Internal Medicine

== ENCOUNTER 2019-12-16 10:00 | Inpatient (IN) ==
[2019-12-16] MEDS ORDERED: DILTIAZEM 25 MG/5 ML VIAL IV ONE (10:13)
[2019-12-16] MEDS ORDERED: DILTIAZEM 50 MG/10 ML VIAL IV STA ×2 (10:15→10:56)
[2019-12-16 10:38] LABS: Basophils % 0.2 % (0.0-0.8); Eosinophils % 0.1 % (0.00-10.9); Hematocrit 33.3 VOL% (42.0-52.0); Hemoglobin 11.1 GM/DL (14.0-18.0); Immature Granulocytes % 0.8 %; Lymphocytes # 0.3 10*3/uL (1.4-4.0); Lymphocytes % 2.4 % (21.2-54.2); Mean Corpuscular HGB Conc 33.3 GM/DL (32-36); Mean Corpuscular Volume 109.9 FL (87-102); Mean Platelet Volume 11.5 FL (9.6-12.0); Neutrophils % 86.5 % (38.7-73.9); Platelet Count 181 T/CUMM (130-400); Red Blood Count 3.03 MC/CUMM (3.8-5.5); Red Cell Distribution Width 13.3 % (9.3-17.3); White Blood Count 12.3 T/CUMM (4-12)
[2019-12-16 10:53] LABS: INR 1.1; PT Patient Result 11.6 SECS (9.6-12.2); Partial Thromboplastin Time 28.9 SECS (20.8-36.0)
[2019-12-16] MEDS: dilTIAZem Drip 125 MG/125 ML PREMIX IV SCH (10:58)
[2019-12-16 11:01] LABS: Albumin 2.2 G/DL (3.4-5.0); Bilirubin,Total 0.4 MG/DL (0.2-1.0); Calcium 8.6 MG/DL (8.5-10.1); Osmolality,Calculated 269.8 MOS/KG (273-304); Total Protein 7.4 G/DL (6.4-8.3)
[2019-12-16 11:11] LABS: Hypochromasia 1+; Lymphocytes 3 % (20-55); Nucleated Red Blood Cells 1 (0-5); Platelet Estimate Adequate; Segmented Neutrophils 82 % (50-85); Total Cells Counted 100
[2019-12-16 11:19] LABS: Thyroid Stimulating Hormone 1.1 uIU/ml (0.358-3.74)
[2019-12-16] MEDS ORDERED: DILTIAZEM 100 MG VIAL.ADD IV ONE (11:35)
[2019-12-16] MEDS ORDERED: guaiFENesin/DM ER 600-30 MG TABLET PO PRN (12:12)
[2019-12-16] MEDS ORDERED: MORPHINE 4 MG/1 ML VIAL IV PRN (12:12)
[2019-12-16] MEDS ORDERED: DOCUSATE SODIUM 100 MG CAPSULE PO PRN (12:12)
[2019-12-16] MEDS ORDERED: ONDANSETRON 4 MG/2 ML VIAL IV PRN (12:12)
[2019-12-16] MEDS ORDERED: ACETAMINOPHEN 325 MG TABLET PO PRN (12:12)
[2019-12-16] MEDS ORDERED: DOXYCYCLINE HYCLATE 100 MG CAPSULE PO SCH (12:30)
[2019-12-16] MEDS ORDERED: ENOXAPARIN 40 MG/0.4 ML SYRINGE SUBCUT SCH (12:30)
[2019-12-16] MEDS: SODIUM CHLORIDE 0.9% 1,000 ML IV SCH (15:00)
[2019-12-16] MEDS: predniSONE 20 MG TABLET PO SCH (16:07)
[2019-12-16] MEDS: PIPERACILLIN/TAZOBACTAM 3,375 MG in SODIUM CHLORIDE 0.9% 100 ML IV SCH ×2 (16:07→21:05)
[2019-12-16] MEDS: METOPROLOL TARTRATE 25 MG TABLET PO SCH ×2 (16:08→21:05)
[2019-12-16] MEDS: ENOXAPARIN 80 MG/0.8 ML SYRINGE SUBCUT SCH (16:08)
[2019-12-16] MEDS: ALBUTEROL/IPRATROPIUM 3 ML NEB RESP TX SCH ×3 (16:20→22:18)
[2019-12-17 00:50] LABS: Barbiturates Screen,Urine Negative (Negative); Benzodiazepines Screen,Urine Negative (Negative); Cannabinoid Screen,Urine Negative (Negative); Opiate Screen,Urine Negative (Negative); Phencyclidine Screen,Urine Negative (Negative)
[2019-12-17] MEDS: SODIUM CHLORIDE 0.9% 1,000 ML IV SCH ×3 (01:00→23:17)
[2019-12-17 01:12] LABS: Apearance,Urine CLEAR (Clear); Bilirubin,Urine Negative (Negative); Blood, Urine Moderate mg/dL (Negative); Glucose,Urine (UA) Negative (Negative); Granular Casts,Urine 1 /LPF (0-1); Hyaline Casts,Urine 10 /LPF (0-3); Ketones,Urine Negative (Negative); Mucus,Urine Occasional /LPF (Occasional); Nitrite,Urine Negative (Negative); Protein,Urine 100 MG/DL; RBC,Urine 2 /HPF (0-4); Squamous Epithelial Cell,Urine Occasional /HPF (0-10); Urine Color Yellow (Yellow); Urine Specific Gravity 1.016 (1.001-1.035); Urine Urobilinogen < 2.0 EU/DL (0.2-1.0); WBC,Urine 1 /HPF (0-6)
[2019-12-17] MEDS: ALBUTEROL/IPRATROPIUM 3 ML NEB RESP TX SCH ×6 (02:37→22:55)
[2019-12-17] MEDS: ENOXAPARIN 80 MG/0.8 ML SYRINGE SUBCUT SCH (03:44)
[2019-12-17 06:03] LABS: Basophils % 0.1 % (0.0-0.8); Hematocrit 30.1 VOL% (42.0-52.0); Hemoglobin 9.8 GM/DL (14.0-18.0); Immature Granulocytes % 0.4 %; Immature Granulocytes Absolute 0.05 #; Lymphocytes # 0.2 10*3/uL (1.4-4.0); Lymphocytes % 1.7 % (21.2-54.2); Mean Corpuscular HGB Conc 32.6 GM/DL (32-36); Mean Corpuscular Volume 110.7 FL (87-102); Mean Platelet Volume 11.4 FL (9.6-12.0); Neutrophils % 93.8 % (38.7-73.9); Platelet Count 170 T/CUMM (130-400); Red Blood Count 2.72 MC/CUMM (3.8-5.5); Red Cell Distribution Width 13.1 % (9.3-17.3); White Blood Count 11.4 T/CUMM (4-12)
[2019-12-17 06:14] LABS: Albumin 1.8 G/DL (3.4-5.0); Bilirubin,Total 0.9 MG/DL (0.2-1.0); Calcium 8.6 MG/DL (8.5-10.1); Osmolality,Calculated 274.2 MOS/KG (273-304); Total Protein 6.9 G/DL (6.4-8.3)
[2019-12-17] MEDS: PIPERACILLIN/TAZOBACTAM 3,375 MG in SODIUM CHLORIDE 0.9% 100 ML IV SCH ×3 (06:14→22:40)
[2019-12-17 06:27] LABS: Hypochromasia 1+; Lymphocytes 4 % (20-55); Ovalocytes Slight; Platelet Estimate Adequate; Segmented Neutrophils 95 % (50-85); Total Cells Counted 100
[2019-12-17] MEDS: PANTOPRAZOLE 40 MG TABLET PO SCH (08:43)
[2019-12-17] MEDS: predniSONE 20 MG TABLET PO SCH (08:43)
[2019-12-17] MEDS: METOPROLOL TARTRATE 25 MG TABLET PO SCH ×2 (08:43→21:15)
[2019-12-17] MEDS: dilTIAZem Drip 125 MG/125 ML PREMIX IV SCH (10:47)
[2019-12-17] MEDS ORDERED: APIXABAN 2.5 MG TABLET PO ONE (14:55)
[2019-12-17] MEDS ORDERED: APIXABAN 5 MG TABLET PO SCH ×2 (15:00→21:00)
[2019-12-17] MEDS: ASCORBIC ACID 500 MG TABLET PO SCH ×2 (15:33→21:15)
[2019-12-17] MEDS: DILTIAZEM CD 240 MG CAPSULE PO SCH (15:34)
[2019-12-17] MEDS: APIXABAN 5 MG TABLET PO SCH (21:16)
[2019-12-18] MEDS: ALBUTEROL/IPRATROPIUM 3 ML NEB RESP TX SCH ×6 (03:17→23:20)
[2019-12-18 05:20] LABS: Basophils % 0.1 % (0.0-0.8); Hemoglobin 9.6 GM/DL (14.0-18.0); Immature Granulocytes % 0.9 %; Immature Granulocytes Absolute 0.12 #; Lymphocytes # 0.3 10*3/uL (1.4-4.0); Lymphocytes % 2.4 % (21.2-54.2); Mean Corpuscular Volume 113.2 FL (87-102); Mean Platelet Volume 10.4 FL (9.6-12.0); Monocytes % 6.3 % (1.7-12.7); NRBC # 0.02 10*3/uL; Neutrophils % 90.3 % (38.7-73.9); Platelet Count 188 T/CUMM (130-400); Red Blood Count 2.65 MC/CUMM (3.8-5.5); Red Cell Distribution Width 13.2 % (9.3-17.3); White Blood Count 13.6 T/CUMM (4-12)
[2019-12-18 05:42] LABS: Calcium 8.5 MG/DL (8.5-10.1); Osmolality,Calculated 280.5 MOS/KG (273-304)
[2019-12-18 05:49] LABS: Hypochromasia 1+; Lymphocytes 3 % (20-55); Ovalocytes Slight; Platelet Estimate Adequate; Segmented Neutrophils 85 % (50-85); Total Cells Counted 100
[2019-12-18] MEDS: PIPERACILLIN/TAZOBACTAM 3,375 MG in SODIUM CHLORIDE 0.9% 100 ML IV SCH ×3 (06:19→21:31)
[2019-12-18] MEDS: MULTIVITAMIN (CENTRUM) TABLET PO SCH (10:39)
[2019-12-18] MEDS: predniSONE 20 MG TABLET PO SCH (10:39)
[2019-12-18] MEDS: THIAMINE 100 MG TABLET PO SCH (10:40)
[2019-12-18] MEDS: METOPROLOL TARTRATE 25 MG TABLET PO SCH ×2 (10:40→21:30)
[2019-12-18] MEDS: DILTIAZEM CD 240 MG CAPSULE PO SCH (10:41)
[2019-12-18] MEDS: ASCORBIC ACID 500 MG TABLET PO SCH ×2 (10:42→21:30)
[2019-12-18] MEDS: FOLIC ACID 1 MG TABLET PO SCH (10:42)
[2019-12-18] MEDS: PANTOPRAZOLE 40 MG TABLET PO SCH (10:43)
[2019-12-18] MEDS: APIXABAN 5 MG TABLET PO SCH ×2 (10:44→21:31)
[2019-12-18] MEDS ORDERED: MAGNESIUM SULF RIDER 2 GM in PREMIX 1 EACH IV ONE (11:21)
[2019-12-18] MEDS: SODIUM CHLORIDE 0.9% 1,000 ML IV SCH ×3 (11:56→19:05)
[2019-12-18] MEDS: dilTIAZem Drip 125 MG/125 ML PREMIX IV SCH (11:57)
[2019-12-18] MEDS: guaiFENesin/DM ER 600-30 MG TABLET PO SCH (21:30)
[2019-12-19] MEDS: ALBUTEROL/IPRATROPIUM 3 ML NEB RESP TX SCH ×5 (03:40→19:29)
[2019-12-19] MEDS: PIPERACILLIN/TAZOBACTAM 3,375 MG in SODIUM CHLORIDE 0.9% 100 ML IV SCH ×3 (05:45→21:11)
[2019-12-19 07:20] LABS: Basophils % 0.1 % (0.0-0.8); Hemoglobin 9.9 GM/DL (14.0-18.0); Immature Granulocytes % 1.4 %; Immature Granulocytes Absolute 0.16 #; Lymphocytes # 0.3 10*3/uL (1.4-4.0); Lymphocytes % 2.6 % (21.2-54.2); Mean Corpuscular HGB Conc 31.9 GM/DL (32-36); Mean Platelet Volume 10.3 FL (9.6-12.0); Monocytes % 6.9 % (1.7-12.7); NRBC # 0.02 10*3/uL; Platelet Count 219 T/CUMM (130-400); Red Blood Count 2.72 MC/CUMM (3.8-5.5); Red Cell Distribution Width 13.5 % (9.3-17.3); White Blood Count 11.5 T/CUMM (4-12)
[2019-12-19 07:36] LABS: Calcium 8.5 MG/DL (8.5-10.1)
[2019-12-19 07:41] LABS: Hypochromasia 1+; Lymphocytes 5 % (20-55); Ovalocytes Slight; Platelet Estimate Adequate; Segmented Neutrophils 86 % (50-85); Total Cells Counted 100
[2019-12-19] MEDS: MULTIVITAMIN (CENTRUM) TABLET PO SCH (08:55)
[2019-12-19] MEDS: ASCORBIC ACID 500 MG TABLET PO SCH ×2 (08:55→21:13)
[2019-12-19] MEDS: FOLIC ACID 1 MG TABLET PO SCH (08:55)
[2019-12-19] MEDS: DILTIAZEM CD 240 MG CAPSULE PO SCH (08:55)
[2019-12-19] MEDS: APIXABAN 5 MG TABLET PO SCH ×2 (08:56→21:12)
[2019-12-19] MEDS: PANTOPRAZOLE 40 MG TABLET PO SCH (08:56)
[2019-12-19] MEDS: METOPROLOL TARTRATE 25 MG TABLET PO SCH ×2 (08:56→21:12)
[2019-12-19] MEDS: THIAMINE 100 MG TABLET PO SCH (08:56)
[2019-12-19] MEDS: guaiFENesin/DM ER 600-30 MG TABLET PO SCH (08:56)
[2019-12-19] MEDS: predniSONE 20 MG TABLET PO SCH (08:56)
[2019-12-19] MEDS: dilTIAZem Drip 125 MG/125 ML PREMIX IV SCH (09:39)
[2019-12-19] MEDS: LEVOFLOXACIN INJ 500 MG in PREMIX 1 EACH IV SCH (12:52)
[2019-12-19] MEDS: BENZONATATE 100 MG CAPSULE PO SCH ×2 (14:48→21:12)
[2019-12-19] MEDS: SODIUM CHLORIDE 0.9% 1,000 ML IV SCH (21:08)
[2019-12-20] MEDS: ALBUTEROL/IPRATROPIUM 3 ML NEB RESP TX SCH ×7 (00:02→23:30)
[2019-12-20 04:52] LABS: Basophils % 0.1 % (0.0-0.8); Hematocrit 30.8 VOL% (42.0-52.0); Hemoglobin 9.8 GM/DL (14.0-18.0); Immature Granulocytes % 1.3 %; Immature Granulocytes Absolute 0.16 #; Lymphocytes # 0.2 10*3/uL (1.4-4.0); Lymphocytes % 1.9 % (21.2-54.2); Mean Corpuscular HGB Conc 31.8 GM/DL (32-36); Mean Corpuscular Volume 114.1 FL (87-102); Mean Platelet Volume 9.7 FL (9.6-12.0); Monocytes % 6.1 % (1.7-12.7); NRBC # 0.02 10*3/uL; Neutrophils % 90.6 % (38.7-73.9); Platelet Count 219 T/CUMM (130-400); Red Cell Distribution Width 13.7 % (9.3-17.3); White Blood Count 12.3 T/CUMM (4-12)
[2019-12-20 05:13] LABS: Hypochromasia 1+; Lymphocytes 1 % (20-55); Ovalocytes Slight; Platelet Estimate Adequate; Segmented Neutrophils 96 % (50-85); Total Cells Counted 100
[2019-12-20 05:41] LABS: Calcium 8.5 MG/DL (8.5-10.1); Osmolality,Calculated 278.5 MOS/KG (273-304)
[2019-12-20] MEDS: PIPERACILLIN/TAZOBACTAM 3,375 MG in SODIUM CHLORIDE 0.9% 100 ML IV SCH (06:03)
[2019-12-20] MEDS ORDERED: MAGNESIUM SULF RIDER 4 GM in PREMIX 1 EACH IV PRN (08:11)
[2019-12-20] MEDS: SODIUM CHLORIDE 0.9% 1,000 ML IV SCH ×3 (09:08→15:39)
[2019-12-20] MEDS: FOLIC ACID 1 MG TABLET PO SCH (09:10)
[2019-12-20] MEDS: MULTIVITAMIN (CENTRUM) TABLET PO SCH (09:10)
[2019-12-20] MEDS: BENZONATATE 100 MG CAPSULE PO SCH ×3 (09:10→20:59)
[2019-12-20] MEDS: METOPROLOL TARTRATE 25 MG TABLET PO SCH ×2 (09:10→20:59)
[2019-12-20] MEDS: ASCORBIC ACID 500 MG TABLET PO SCH ×2 (09:10→20:59)
[2019-12-20] MEDS: PANTOPRAZOLE 40 MG TABLET PO SCH (09:10)
[2019-12-20] MEDS: predniSONE 20 MG TABLET PO SCH (09:11)
[2019-12-20] MEDS: APIXABAN 5 MG TABLET PO SCH ×2 (09:11→20:58)
[2019-12-20] MEDS: THIAMINE 100 MG TABLET PO SCH (09:11)
[2019-12-20] MEDS: DILTIAZEM CD 240 MG CAPSULE PO SCH (09:11)
[2019-12-20] MEDS: MAGNESIUM SULF RIDER 2 GM in PREMIX 1 EACH IV PRN (09:19)
[2019-12-20] MEDS: cefTAZidime 1,000 MG in SYRINGE 1 EACH IV SCH ×2 (11:51→20:58)
[2019-12-20] MEDS: LEVOFLOXACIN INJ 500 MG in PREMIX 1 EACH IV SCH (11:51)
[2019-12-21] MEDS: ALBUTEROL/IPRATROPIUM 3 ML NEB RESP TX SCH ×6 (03:17→23:36)
[2019-12-21] MEDS: cefTAZidime 1,000 MG in SYRINGE 1 EACH IV SCH ×3 (05:00→20:46)
[2019-12-21 06:23] LABS: Basophils % 0.3 % (0.0-0.8); Hematocrit 31.4 VOL% (42.0-52.0); Immature Granulocytes % 2.2 %; Immature Granulocytes Absolute 0.25 #; Lymphocytes # 0.2 10*3/uL (1.4-4.0); Lymphocytes % 2.1 % (21.2-54.2); Mean Corpuscular HGB Conc 31.8 GM/DL (32-36); Mean Corpuscular Volume 114.6 FL (87-102); Mean Platelet Volume 9.9 FL (9.6-12.0); Monocytes % 6.6 % (1.7-12.7); NRBC # 0.03 10*3/uL; Neutrophils % 88.8 % (38.7-73.9); Platelet Count 254 T/CUMM (130-400); Red Blood Count 2.74 MC/CUMM (3.8-5.5); Red Cell Distribution Width 13.4 % (9.3-17.3); White Blood Count 11.5 T/CUMM (4-12)
[2019-12-21 07:04] LABS: Osmolality,Calculated 277.5 MOS/KG (273-304)
[2019-12-21] MEDS: MAGNESIUM SULF RIDER 2 GM in PREMIX 1 EACH IV PRN (09:00)
[2019-12-21] MEDS: SODIUM CHLORIDE 0.9% 1,000 ML IV SCH ×3 (09:02→20:48)
[2019-12-21] MEDS: ASCORBIC ACID 500 MG TABLET PO SCH ×2 (09:03→20:46)
[2019-12-21] MEDS: APIXABAN 5 MG TABLET PO SCH ×2 (09:03→20:47)
[2019-12-21] MEDS: predniSONE 20 MG TABLET PO SCH (09:03)
[2019-12-21] MEDS: METOPROLOL TARTRATE 25 MG TABLET PO SCH ×2 (09:04→20:46)
[2019-12-21] MEDS: MULTIVITAMIN (CENTRUM) TABLET PO SCH (09:04)
[2019-12-21] MEDS: FOLIC ACID 1 MG TABLET PO SCH (09:04)
[2019-12-21] MEDS: PANTOPRAZOLE 40 MG TABLET PO SCH (09:04)
[2019-12-21] MEDS: DILTIAZEM CD 240 MG CAPSULE PO SCH (09:04)
[2019-12-21] MEDS: BENZONATATE 100 MG CAPSULE PO SCH ×3 (09:04→20:47)
[2019-12-21] MEDS: THIAMINE 100 MG TABLET PO SCH (09:05)
[2019-12-21 10:02] LABS: Band Neutrophils 1 % (0-10); Hypochromasia 3+; Macrocytosis 2+; Nucleated Red Blood Cells 1 (0-5); Platelet Estimate Normal; Polychromasia Slight; Segmented Neutrophils 88 % (50-85); Total Cells Counted 100
[2019-12-21] MEDS: LEVOFLOXACIN INJ 500 MG in PREMIX 1 EACH IV SCH (12:48)
[2019-12-21] MEDS: FLUCONAZOLE INJ 400 MG in PREMIX 1 EACH IV SCH (22:13)
[2019-12-22] MEDS: SODIUM CHLORIDE 0.9% 1,000 ML IV SCH ×4 (02:05→23:02)
[2019-12-22] MEDS: cefTAZidime 1,000 MG in SYRINGE 1 EACH IV SCH ×3 (04:04→22:58)
[2019-12-22] MEDS: ALBUTEROL/IPRATROPIUM 3 ML NEB RESP TX SCH ×6 (04:30→22:15)
[2019-12-22 05:49] LABS: Basophils % 0.2 % (0.0-0.8); Hematocrit 30.5 VOL% (42.0-52.0); Hemoglobin 9.7 GM/DL (14.0-18.0); Immature Granulocytes % 3.9 %; Immature Granulocytes Absolute 0.48 #; Lymphocytes # 0.3 10*3/uL (1.4-4.0); Lymphocytes % 2.7 % (21.2-54.2); Mean Corpuscular HGB Conc 31.8 GM/DL (32-36); Mean Corpuscular Volume 115.1 FL (87-102); Mean Platelet Volume 9.8 FL (9.6-12.0); Monocytes % 10.2 % (1.7-12.7); NRBC # 0.03 10*3/uL; Platelet Count 231 T/CUMM (130-400); Red Blood Count 2.65 MC/CUMM (3.8-5.5); Red Cell Distribution Width 13.9 % (9.3-17.3); White Blood Count 12.4 T/CUMM (4-12)
[2019-12-22 06:31] LABS: Osmolality,Calculated 276.7 MOS/KG (273-304)
[2019-12-22] MEDS: MAGNESIUM SULF RIDER 2 GM in PREMIX 1 EACH IV PRN (08:49)
[2019-12-22] MEDS: predniSONE 20 MG TABLET PO SCH (08:53)
[2019-12-22] MEDS: ASCORBIC ACID 500 MG TABLET PO SCH ×2 (08:53→22:59)
[2019-12-22] MEDS: METOPROLOL TARTRATE 25 MG TABLET PO SCH ×2 (08:53→23:00)
[2019-12-22] MEDS: DILTIAZEM CD 240 MG CAPSULE PO SCH (08:53)
[2019-12-22] MEDS: MULTIVITAMIN (CENTRUM) TABLET PO SCH (08:53)
[2019-12-22] MEDS: FOLIC ACID 1 MG TABLET PO SCH (08:54)
[2019-12-22] MEDS: APIXABAN 5 MG TABLET PO SCH ×2 (08:54→22:59)
[2019-12-22] MEDS: PANTOPRAZOLE 40 MG TABLET PO SCH (08:54)
[2019-12-22] MEDS: THIAMINE 100 MG TABLET PO SCH (08:54)
[2019-12-22] MEDS: BENZONATATE 100 MG CAPSULE PO SCH ×3 (08:54→23:00)
[2019-12-22 11:27] LABS: Lymphocytes 3 % (20-55); Myelocytes 1 %; Segmented Neutrophils 86 % (50-85); Total Cells Counted 100
[2019-12-22 11:28] LABS: Hypochromasia 4+; Macrocytosis 2+; Platelet Estimate Normal
[2019-12-22] MEDS: LEVOFLOXACIN INJ 500 MG in PREMIX 1 EACH IV SCH (11:58)
[2019-12-22] MEDS: FLUCONAZOLE INJ 400 MG in PREMIX 1 EACH IV SCH (22:59)
[2019-12-23] MEDS: ALBUTEROL/IPRATROPIUM 3 ML NEB RESP TX SCH ×7 (01:15→23:23)
[2019-12-23 04:56] LABS: Basophils % 0.3 % (0.0-0.8); Hematocrit 30.2 VOL% (42.0-52.0); Hemoglobin 9.4 GM/DL (14.0-18.0); Immature Granulocytes % 4.3 %; Immature Granulocytes Absolute 0.44 #; Lymphocytes # 0.2 10*3/uL (1.4-4.0); Lymphocytes % 2.2 % (21.2-54.2); Mean Corpuscular HGB Conc 31.1 GM/DL (32-36); Mean Corpuscular Volume 116.6 FL (87-102); Mean Platelet Volume 9.9 FL (9.6-12.0); Monocytes % 9.4 % (1.7-12.7); NRBC # 0.03 10*3/uL; Neutrophils % 83.8 % (38.7-73.9); Platelet Count 233 T/CUMM (130-400); Red Blood Count 2.59 MC/CUMM (3.8-5.5); Red Cell Distribution Width 14.2 % (9.3-17.3); White Blood Count 10.2 T/CUMM (4-12)
[2019-12-23] MEDS: cefTAZidime 1,000 MG in SYRINGE 1 EACH IV SCH ×3 (05:00→21:27)
[2019-12-23 05:15] LABS: Calcium 8.8 MG/DL (8.5-10.1); Osmolality,Calculated 277.7 MOS/KG (273-304)
[2019-12-23 05:18] LABS: Lymphocytes 2 % (20-55); Nucleated Red Blood Cells 1 (0-5); Platelet Estimate Adequate; Segmented Neutrophils 95 % (50-85); Total Cells Counted 100
[2019-12-23 05:19] LABS: Hypochromasia 1+; Macrocytosis Slight
[2019-12-23] MEDS: ASCORBIC ACID 500 MG TABLET PO SCH ×2 (09:29→21:30)
[2019-12-23] MEDS: BENZONATATE 100 MG CAPSULE PO SCH ×3 (09:29→21:29)
[2019-12-23] MEDS: THIAMINE 100 MG TABLET PO SCH (09:29)
[2019-12-23] MEDS: APIXABAN 5 MG TABLET PO SCH ×2 (09:29→21:30)
[2019-12-23] MEDS: PANTOPRAZOLE 40 MG TABLET PO SCH (09:29)
[2019-12-23] MEDS: predniSONE 20 MG TABLET PO SCH (09:29)
[2019-12-23] MEDS: METOPROLOL TARTRATE 25 MG TABLET PO SCH ×2 (09:30→21:30)
[2019-12-23] MEDS: FOLIC ACID 1 MG TABLET PO SCH (09:30)
[2019-12-23] MEDS: MULTIVITAMIN (CENTRUM) TABLET PO SCH (09:30)
[2019-12-23] MEDS: DILTIAZEM CD 240 MG CAPSULE PO SCH (09:31)
[2019-12-23] MEDS: MAGNESIUM SULF RIDER 2 GM in PREMIX 1 EACH IV PRN (09:39)
[2019-12-23 12:26] LABS: QuantiFERON-Tb Gold Pl Negative (Negative); TB2 Ag Minus Result 0 IU/mL
[2019-12-23] MEDS: SODIUM CHLORIDE 0.9% 1,000 ML IV SCH (12:53)
[2019-12-23] MEDS: LEVOFLOXACIN INJ 500 MG in PREMIX 1 EACH IV SCH (12:58)
[2019-12-23] MEDS: FLUCONAZOLE INJ 400 MG in PREMIX 1 EACH IV SCH (21:27)
[2019-12-24] MEDS: SODIUM CHLORIDE 0.9% 1,000 ML IV SCH ×3 (01:00→14:49)
[2019-12-24] MEDS: ALBUTEROL/IPRATROPIUM 3 ML NEB RESP TX SCH ×6 (02:46→23:30)
[2019-12-24] MEDS: cefTAZidime 1,000 MG in SYRINGE 1 EACH IV SCH ×3 (03:13→21:03)
[2019-12-24 04:48] LABS: Basophils % 0.2 % (0.0-0.8); Hematocrit 31.1 VOL% (42.0-52.0); Hemoglobin 9.8 GM/DL (14.0-18.0); Immature Granulocytes % 4.1 %; Immature Granulocytes Absolute 0.42 #; Lymphocytes # 0.2 10*3/uL (1.4-4.0); Lymphocytes % 2.2 % (21.2-54.2); Mean Corpuscular HGB Conc 31.5 GM/DL (32-36); Mean Corpuscular Volume 116.9 FL (87-102); Mean Platelet Volume 9.5 FL (9.6-12.0); Monocytes % 8.1 % (1.7-12.7); NRBC # 0.02 10*3/uL; Neutrophils % 85.4 % (38.7-73.9); Platelet Count 223 T/CUMM (130-400); Red Blood Count 2.66 MC/CUMM (3.8-5.5); Red Cell Distribution Width 14.5 % (9.3-17.3); White Blood Count 10.3 T/CUMM (4-12)
[2019-12-24 05:13] LABS: Calcium 9.3 MG/DL (8.5-10.1); Osmolality,Calculated 277.7 MOS/KG (273-304)
[2019-12-24 05:15] LABS: Band Neutrophils 2 % (0-10); Hypochromasia 2+; Lymphocytes 5 % (20-55); Segmented Neutrophils 85 % (50-85); Total Cells Counted 100
[2019-12-24 05:16] LABS: Macrocytosis Slight
[2019-12-24 05:17] LABS: Polychromasia Slight
[2019-12-24] MEDS: PANTOPRAZOLE 40 MG TABLET PO SCH (08:37)
[2019-12-24] MEDS: DILTIAZEM CD 240 MG CAPSULE PO SCH (08:37)
[2019-12-24] MEDS: FOLIC ACID 1 MG TABLET PO SCH (08:37)
[2019-12-24] MEDS: BENZONATATE 100 MG CAPSULE PO SCH ×3 (08:37→21:06)
[2019-12-24] MEDS: predniSONE 20 MG TABLET PO SCH (08:37)
[2019-12-24] MEDS: MULTIVITAMIN (CENTRUM) TABLET PO SCH (08:37)
[2019-12-24] MEDS: APIXABAN 5 MG TABLET PO SCH (08:37)
[2019-12-24] MEDS: ASCORBIC ACID 500 MG TABLET PO SCH ×2 (08:38→21:05)
[2019-12-24] MEDS: METOPROLOL TARTRATE 25 MG TABLET PO SCH ×2 (08:38→21:05)
[2019-12-24] MEDS: THIAMINE 100 MG TABLET PO SCH (08:38)
[2019-12-24] MEDS: MAGNESIUM SULF RIDER 2 GM in PREMIX 1 EACH IV PRN (08:41)
[2019-12-24 10:30] LABS: % Iron Saturation 36.2 % (18-50)
[2019-12-24] MEDS ORDERED: MEPERIDINE 25 MG/1 ML VIAL IM ONE (10:30)
[2019-12-24] MEDS: LEVOFLOXACIN INJ 500 MG in PREMIX 1 EACH IV SCH (11:58)
[2019-12-24 13:55] LABS: Folate 22.9 NG/ML (5.4-24.0)
[2019-12-24] MEDS: MORPHINE 4 MG/1 ML VIAL IV PRN (21:03)
[2019-12-24] MEDS: FLUCONAZOLE INJ 400 MG in PREMIX 1 EACH IV SCH (21:07)
[2019-12-25] MEDS: MORPHINE 4 MG/1 ML VIAL IV PRN (01:11)
[2019-12-25] MEDS: ALBUTEROL/IPRATROPIUM 3 ML NEB RESP TX SCH ×6 (02:43→23:40)
[2019-12-25] MEDS: cefTAZidime 1,000 MG in SYRINGE 1 EACH IV SCH ×3 (04:08→21:21)
[2019-12-25 05:51] LABS: Basophils % 0.3 % (0.0-0.8); Eosinophils % 0.1 % (0.00-10.9); Hematocrit 32.2 VOL% (42.0-52.0); Immature Granulocytes % 2.6 %; Immature Granulocytes Absolute 0.29 #; Lymphocytes # 0.4 10*3/uL (1.4-4.0); Lymphocytes % 3.3 % (21.2-54.2); Mean Corpuscular HGB Conc 31.1 GM/DL (32-36); Mean Corpuscular Volume 116.2 FL (87-102); Mean Platelet Volume 9.5 FL (9.6-12.0); Monocytes % 11.3 % (1.7-12.7); NRBC # 0.02 10*3/uL; Neutrophils % 82.4 % (38.7-73.9); Platelet Count 214 T/CUMM (130-400); Red Blood Count 2.77 MC/CUMM (3.8-5.5); Red Cell Distribution Width 14.5 % (9.3-17.3); White Blood Count 11.3 T/CUMM (4-12)
[2019-12-25] MEDS: SODIUM CHLORIDE 0.9% 1,000 ML IV SCH ×2 (05:54→21:19)
[2019-12-25 06:05] LABS: Calcium 9.1 MG/DL (8.5-10.1); Osmolality,Calculated 276.7 MOS/KG (273-304)
[2019-12-25 06:14] LABS: Anisocytosis 1+; Hypochromasia 1+; Lymphocytes 6 % (20-55); Macrocytosis 1+; Microcytosis 1+; Nucleated Red Blood Cells 1 (0-5); Ovalocytes Slight; Platelet Estimate Adequate; Segmented Neutrophils 85 % (50-85); Total Cells Counted 100
[2019-12-25 06:23] LABS: Partial Thromboplastin Time 23.3 SECS (20.8-36.0)
[2019-12-25] MEDS ORDERED: BENZONATATE 100 MG CAPSULE PO ONE (08:00)
[2019-12-25] MEDS ORDERED: MEPERIDINE 25 MG/1 ML VIAL IM ONE (08:00)
[2019-12-25] MEDS ORDERED: diphenhydrAMINE 50 MG/1 ML VIAL IM ONE (08:00)
[2019-12-25] MEDS ORDERED: LIDOCAINE 2% 20 ML VIAL RESP TX ONE (08:30)
[2019-12-25] MEDS ORDERED: LIDOCAINE 1% 20 ML VIAL MISC INJ ONE (08:30)
[2019-12-25] MEDS ORDERED: LIDOCAINE 2% VISCOUS 100 ML BOTTLE SWISH/SPIT ONE (08:30)
[2019-12-25] MEDS ORDERED: MIDAZOLAM 2 MG/2 ML VIAL IV ONE (10:05)
[2019-12-25] MEDS ORDERED: EPINEPHrine 1 MG/ML VIAL ET ONE (10:19)
[2019-12-25] MEDS ORDERED: EPINEPHrine 1 MG/ML VIAL ONE (11:02)
[2019-12-25] MEDS ORDERED: MIDAZOLAM 2 MG/2 ML VIAL ONE (11:02)
[2019-12-25] MEDS: METOPROLOL TARTRATE 25 MG TABLET PO SCH ×2 (13:34→21:20)
[2019-12-25] MEDS: PANTOPRAZOLE 40 MG TABLET PO SCH (13:35)
[2019-12-25] MEDS: predniSONE 20 MG TABLET PO SCH (13:35)
[2019-12-25] MEDS: ASCORBIC ACID 500 MG TABLET PO SCH ×2 (13:35→21:20)
[2019-12-25] MEDS: LEVOFLOXACIN INJ 500 MG in PREMIX 1 EACH IV SCH (13:35)
[2019-12-25] MEDS: BENZONATATE 100 MG CAPSULE PO SCH ×3 (13:35→21:20)
[2019-12-25] MEDS: MULTIVITAMIN (CENTRUM) TABLET PO SCH (13:35)
[2019-12-25] MEDS: FOLIC ACID 1 MG TABLET PO SCH (13:35)
[2019-12-25] MEDS: THIAMINE 100 MG TABLET PO SCH (13:35)
[2019-12-25] MEDS: DILTIAZEM CD 240 MG CAPSULE PO SCH (13:35)
[2019-12-25] MEDS: FLUCONAZOLE INJ 400 MG in PREMIX 1 EACH IV SCH (21:21)
[2019-12-25] MEDS: APIXABAN 5 MG TABLET PO SCH (21:29)
[2019-12-26] MEDS: ALBUTEROL/IPRATROPIUM 3 ML NEB RESP TX SCH ×6 (03:22→23:34)
[2019-12-26] MEDS: cefTAZidime 1,000 MG in SYRINGE 1 EACH IV SCH ×3 (04:16→20:54)
[2019-12-26 04:38] LABS: Basophils % 0.1 % (0.0-0.8); Hematocrit 31.1 VOL% (42.0-52.0); Hemoglobin 9.6 GM/DL (14.0-18.0); Immature Granulocytes % 1.3 %; Immature Granulocytes Absolute 0.15 #; Lymphocytes # 0.2 10*3/uL (1.4-4.0); Lymphocytes % 1.6 % (21.2-54.2); Mean Corpuscular HGB Conc 30.9 GM/DL (32-36); Mean Corpuscular Volume 117.8 FL (87-102); Mean Platelet Volume 9.6 FL (9.6-12.0); Monocytes % 4.8 % (1.7-12.7); NRBC # 0.02 10*3/uL; Neutrophils % 92.2 % (38.7-73.9); Platelet Count 193 T/CUMM (130-400); Red Blood Count 2.64 MC/CUMM (3.8-5.5); Red Cell Distribution Width 14.7 % (9.3-17.3); White Blood Count 11.7 T/CUMM (4-12)
[2019-12-26 05:02] LABS: Lymphocytes 1 % (20-55); Segmented Neutrophils 94 % (50-85); Total Cells Counted 100
[2019-12-26 05:03] LABS: Hypochromasia 1+; Macrocytosis 1+
[2019-12-26 05:05] LABS: Calcium 8.6 MG/DL (8.5-10.1); Osmolality,Calculated 272.1 MOS/KG (273-304)
[2019-12-26] MEDS: FOLIC ACID 1 MG TABLET PO SCH (08:37)
[2019-12-26] MEDS: MULTIVITAMIN (CENTRUM) TABLET PO SCH (08:37)
[2019-12-26] MEDS: METOPROLOL TARTRATE 25 MG TABLET PO SCH ×2 (08:37→20:54)
[2019-12-26] MEDS: PANTOPRAZOLE 40 MG TABLET PO SCH (08:37)
[2019-12-26] MEDS: DILTIAZEM CD 240 MG CAPSULE PO SCH (08:37)
[2019-12-26] MEDS: APIXABAN 5 MG TABLET PO SCH ×2 (08:37→20:55)
[2019-12-26] MEDS: ASCORBIC ACID 500 MG TABLET PO SCH ×2 (08:37→20:55)
[2019-12-26] MEDS: predniSONE 20 MG TABLET PO SCH (08:37)
[2019-12-26] MEDS: THIAMINE 100 MG TABLET PO SCH (08:37)
[2019-12-26] MEDS: BENZONATATE 100 MG CAPSULE PO SCH ×3 (08:38→20:55)
[2019-12-26] MEDS: SODIUM CHLORIDE 0.9% 1,000 ML IV SCH ×2 (10:45→21:06)
[2019-12-26] MEDS: LEVOFLOXACIN INJ 500 MG in PREMIX 1 EACH IV SCH (12:46)
[2019-12-26] MEDS: FLUCONAZOLE INJ 400 MG in PREMIX 1 EACH IV SCH (22:21)
[2019-12-27] MEDS: ALBUTEROL/IPRATROPIUM 3 ML NEB RESP TX SCH ×5 (03:41→20:09)
[2019-12-27] MEDS: cefTAZidime 1,000 MG in SYRINGE 1 EACH IV SCH ×3 (04:39→21:07)
[2019-12-27 06:03] LABS: Basophils % 0.1 % (0.0-0.8); Hematocrit 29.4 VOL% (42.0-52.0); Hemoglobin 9.3 GM/DL (14.0-18.0); Immature Granulocytes % 0.9 %; Immature Granulocytes Absolute 0.09 #; Lymphocytes # 0.3 10*3/uL (1.4-4.0); Lymphocytes % 3.2 % (21.2-54.2); Mean Corpuscular HGB Conc 31.6 GM/DL (32-36); Mean Corpuscular Volume 116.2 FL (87-102); Mean Platelet Volume 10.1 FL (9.6-12.0); Monocytes % 11.2 % (1.7-12.7); Neutrophils % 84.6 % (38.7-73.9); Platelet Count 191 T/CUMM (130-400); Red Blood Count 2.53 MC/CUMM (3.8-5.5); Red Cell Distribution Width 14.7 % (9.3-17.3); White Blood Count 10.2 T/CUMM (4-12)
[2019-12-27 06:23] LABS: Calcium 8.9 MG/DL (8.5-10.1); Osmolality,Calculated 275.8 MOS/KG (273-304)
[2019-12-27 06:30] LABS: Lymphocytes 2 % (20-55); Platelet Estimate Adequate; Segmented Neutrophils 88 % (50-85); Total Cells Counted 100
[2019-12-27 06:31] LABS: Hypochromasia 1+; Macrocytosis Slight; Ovalocytes Slight
[2019-12-27] MEDS: MULTIVITAMIN (CENTRUM) TABLET PO SCH (09:01)
[2019-12-27] MEDS: THIAMINE 100 MG TABLET PO SCH (09:01)
[2019-12-27] MEDS: predniSONE 20 MG TABLET PO SCH (09:02)
[2019-12-27] MEDS: ASCORBIC ACID 500 MG TABLET PO SCH ×2 (09:02→21:07)
[2019-12-27] MEDS: BENZONATATE 100 MG CAPSULE PO SCH ×3 (09:02→21:07)
[2019-12-27] MEDS: FOLIC ACID 1 MG TABLET PO SCH (09:02)
[2019-12-27] MEDS: PANTOPRAZOLE 40 MG TABLET PO SCH (09:03)
[2019-12-27] MEDS: METOPROLOL TARTRATE 25 MG TABLET PO SCH ×2 (09:03→21:07)
[2019-12-27] MEDS: APIXABAN 5 MG TABLET PO SCH (09:03)
[2019-12-27] MEDS: DILTIAZEM CD 240 MG CAPSULE PO SCH (09:07)
[2019-12-27] MEDS: SODIUM CHLORIDE 0.9% 1,000 ML IV SCH (11:56)
[2019-12-27] MEDS: LEVOFLOXACIN INJ 500 MG in PREMIX 1 EACH IV SCH (12:15)
[2019-12-27] MEDS: FLUCONAZOLE INJ 400 MG in PREMIX 1 EACH IV SCH (21:08)
[2019-12-27] MEDS: MORPHINE 4 MG/1 ML VIAL IV PRN (21:09)
[2019-12-28] MEDS: ALBUTEROL/IPRATROPIUM 3 ML NEB RESP TX SCH ×7 (00:17→23:39)
[2019-12-28] MEDS: cefTAZidime 1,000 MG in SYRINGE 1 EACH IV SCH ×3 (04:23→21:06)
[2019-12-28] MEDS: predniSONE 20 MG TABLET PO SCH (08:26)
[2019-12-28] MEDS: THIAMINE 100 MG TABLET PO SCH (08:26)
[2019-12-28] MEDS: ASCORBIC ACID 500 MG TABLET PO SCH ×2 (08:27→20:49)
[2019-12-28] MEDS: DILTIAZEM CD 240 MG CAPSULE PO SCH (08:27)
[2019-12-28] MEDS: PANTOPRAZOLE 40 MG TABLET PO SCH (08:29)
[2019-12-28] MEDS: FOLIC ACID 1 MG TABLET PO SCH (08:30)
[2019-12-28] MEDS: MULTIVITAMIN (CENTRUM) TABLET PO SCH (08:30)
[2019-12-28] MEDS: METOPROLOL TARTRATE 25 MG TABLET PO SCH ×2 (08:30→20:49)
[2019-12-28] MEDS: BENZONATATE 100 MG CAPSULE PO SCH ×3 (08:30→20:49)
[2019-12-28] MEDS: LEVOFLOXACIN INJ 500 MG in PREMIX 1 EACH IV SCH (13:07)
[2019-12-28] MEDS: MORPHINE 4 MG/1 ML VIAL IV PRN (20:49)
[2019-12-28] MEDS: FLUCONAZOLE INJ 400 MG in PREMIX 1 EACH IV SCH (20:50)
[2019-12-29] MEDS: ALBUTEROL/IPRATROPIUM 3 ML NEB RESP TX SCH ×5 (02:54→20:00)
[2019-12-29] MEDS: cefTAZidime 1,000 MG in SYRINGE 1 EACH IV SCH ×3 (03:17→21:34)
[2019-12-29 05:36] LABS: Basophils % 0.1 % (0.0-0.8); Eosinophils % 0.1 % (0.00-10.9); Hematocrit 30.8 VOL% (42.0-52.0); Lymphocytes # 0.3 10*3/uL (1.4-4.0); Lymphocytes % 2.9 % (21.2-54.2); Mean Corpuscular HGB Conc 32.5 GM/DL (32-36); Mean Corpuscular Volume 114.5 FL (87-102); Mean Platelet Volume 9.8 FL (9.6-12.0); Monocytes % 10.1 % (1.7-12.7); Neutrophils % 85.8 % (38.7-73.9); Platelet Count 175 T/CUMM (130-400); Red Blood Count 2.69 MC/CUMM (3.8-5.5); Red Cell Distribution Width 14.5 % (9.3-17.3); White Blood Count 10.5 T/CUMM (4-12)
[2019-12-29 05:51] LABS: Calcium 8.9 MG/DL (8.5-10.1); Osmolality,Calculated 275.8 MOS/KG (273-304)
[2019-12-29 06:50] LABS: Eosinophils 1 % (0-10); Lymphocytes 3 % (20-55); Platelet Estimate Normal; Segmented Neutrophils 90 % (50-85); Total Cells Counted 100
[2019-12-29 06:51] LABS: Anisocytosis 2+; Hypochromasia 2+; Macrocytosis 2+; Microcytosis Slight; Target Cells 1+
[2019-12-29] MEDS: predniSONE 20 MG TABLET PO SCH (09:12)
[2019-12-29] MEDS: BENZONATATE 100 MG CAPSULE PO SCH ×3 (09:12→21:33)
[2019-12-29] MEDS: DILTIAZEM CD 240 MG CAPSULE PO SCH (09:13)
[2019-12-29] MEDS: ASCORBIC ACID 500 MG TABLET PO SCH ×2 (09:13→21:33)
[2019-12-29] MEDS: THIAMINE 100 MG TABLET PO SCH (09:14)
[2019-12-29] MEDS: METOPROLOL TARTRATE 25 MG TABLET PO SCH ×2 (09:14→21:34)
[2019-12-29] MEDS: MULTIVITAMIN (CENTRUM) TABLET PO SCH (09:14)
[2019-12-29] MEDS: PANTOPRAZOLE 40 MG TABLET PO SCH (09:14)
[2019-12-29] MEDS: FOLIC ACID 1 MG TABLET PO SCH (09:14)
[2019-12-29] MEDS: SIMETHICONE CHEW 80 MG TABLET PO PRN (13:20)
[2019-12-30] MEDS: ALBUTEROL/IPRATROPIUM 3 ML NEB RESP TX SCH ×6 (00:22→19:43)
[2019-12-30] MEDS: cefTAZidime 1,000 MG in SYRINGE 1 EACH IV SCH ×3 (04:01→21:34)
[2019-12-30 05:17] LABS: Basophils % 0.2 % (0.0-0.8); Eosinophils % 0.1 % (0.00-10.9); Hematocrit 30.9 VOL% (42.0-52.0); Hemoglobin 9.9 GM/DL (14.0-18.0); Immature Granulocytes % 0.9 %; Immature Granulocytes Absolute 0.09 #; Lymphocytes # 0.2 10*3/uL (1.4-4.0); Lymphocytes % 2.1 % (21.2-54.2); Mean Platelet Volume 9.3 FL (9.6-12.0); Monocytes % 8.3 % (1.7-12.7); Neutrophils % 88.4 % (38.7-73.9); Platelet Count 168 T/CUMM (130-400); Red Blood Count 2.71 MC/CUMM (3.8-5.5); Red Cell Distribution Width 14.3 % (9.3-17.3); White Blood Count 10.2 T/CUMM (4-12)
[2019-12-30 05:42] LABS: Osmolality,Calculated 272.1 MOS/KG (273-304)
[2019-12-30 05:49] LABS: Hypochromasia 1+; Lymphocytes 3 % (20-55); Microcytosis Slight; Platelet Estimate Adequate; Segmented Neutrophils 86 % (50-85); Total Cells Counted 100
[2019-12-30] MEDS ORDERED: DIAZEPAM 5 MG TABLET PO ONE (10:29)
[2019-12-30] MEDS: THIAMINE 100 MG TABLET PO SCH (12:42)
[2019-12-30] MEDS: MULTIVITAMIN (CENTRUM) TABLET PO SCH (12:42)
[2019-12-30] MEDS: BENZONATATE 100 MG CAPSULE PO SCH ×3 (12:42→21:36)
[2019-12-30] MEDS: ASCORBIC ACID 500 MG TABLET PO SCH ×2 (12:43→21:37)
[2019-12-30] MEDS: FLUCONAZOLE 100 MG TABLET PO SCH (12:43)
[2019-12-30] MEDS: PANTOPRAZOLE 40 MG TABLET PO SCH (12:43)
[2019-12-30] MEDS: FOLIC ACID 1 MG TABLET PO SCH (12:43)
[2019-12-30] MEDS: DILTIAZEM CD 240 MG CAPSULE PO SCH (12:43)
[2019-12-30] MEDS: METOPROLOL TARTRATE 25 MG TABLET PO SCH ×2 (12:43→21:36)
[2019-12-30] MEDS: predniSONE 20 MG TABLET PO SCH (12:44)
[2019-12-30] MEDS: LEVOFLOXACIN INJ 500 MG in PREMIX 1 EACH IV SCH (12:45)
[2019-12-30] MEDS: MORPHINE 4 MG/1 ML VIAL IV PRN (21:35)
[2019-12-30] MEDS: APIXABAN 5 MG TABLET PO SCH (21:36)
[2019-12-31] MEDS: ALBUTEROL/IPRATROPIUM 3 ML NEB RESP TX SCH ×6 (01:28→21:14)
[2019-12-31] MEDS: cefTAZidime 1,000 MG in SYRINGE 1 EACH IV SCH ×3 (04:03→21:33)
[2019-12-31 05:30] LABS: Basophils % 0.1 % (0.0-0.8); Eosinophils % 0.1 % (0.00-10.9); Hematocrit 32.9 VOL% (42.0-52.0); Hemoglobin 10.5 GM/DL (14.0-18.0); Immature Granulocytes Absolute 0.09 #; Lymphocytes # 0.2 10*3/uL (1.4-4.0); Lymphocytes % 1.9 % (21.2-54.2); Mean Corpuscular HGB Conc 31.9 GM/DL (32-36); Mean Corpuscular Volume 114.2 FL (87-102); Mean Platelet Volume 9.7 FL (9.6-12.0); Neutrophils % 90.9 % (38.7-73.9); Platelet Count 175 T/CUMM (130-400); Red Blood Count 2.88 MC/CUMM (3.8-5.5); Red Cell Distribution Width 14.3 % (9.3-17.3); White Blood Count 9.4 T/CUMM (4-12)
[2019-12-31 05:49] LABS: Calcium 8.8 MG/DL (8.5-10.1)
[2019-12-31 05:51] LABS: Hypochromasia 1+; Lymphocytes 1 % (20-55); Ovalocytes Slight; Platelet Estimate Adequate; Segmented Neutrophils 95 % (50-85); Total Cells Counted 100
[2019-12-31 05:52] LABS: Microcytosis Slight
[2019-12-31] MEDS: MAGNESIUM SULF RIDER 2 GM in PREMIX 1 EACH IV PRN ×2 (09:21→15:40)
[2019-12-31] MEDS: PANTOPRAZOLE 40 MG TABLET PO SCH (09:22)
[2019-12-31] MEDS: predniSONE 20 MG TABLET PO SCH (09:22)
[2019-12-31] MEDS: BENZONATATE 100 MG CAPSULE PO SCH ×3 (09:22→21:35)
[2019-12-31] MEDS: FLUCONAZOLE 100 MG TABLET PO SCH (09:23)
[2019-12-31] MEDS: METOPROLOL TARTRATE 25 MG TABLET PO SCH ×2 (09:23→21:35)
[2019-12-31] MEDS: ASCORBIC ACID 500 MG TABLET PO SCH ×2 (09:23→21:36)
[2019-12-31] MEDS: DILTIAZEM CD 240 MG CAPSULE PO SCH (09:23)
[2019-12-31] MEDS: FOLIC ACID 1 MG TABLET PO SCH (09:23)
[2019-12-31] MEDS: THIAMINE 100 MG TABLET PO SCH (09:23)
[2019-12-31] MEDS: APIXABAN 5 MG TABLET PO SCH ×2 (09:23→21:36)
[2019-12-31] MEDS: MULTIVITAMIN (CENTRUM) TABLET PO SCH (09:25)
[2019-12-31] MEDS: LEVOFLOXACIN INJ 500 MG in PREMIX 1 EACH IV SCH (14:22)
[2019-12-31] MEDS: MORPHINE 4 MG/1 ML VIAL IV PRN (21:34)
[2020-01-01] MEDS: ALBUTEROL/IPRATROPIUM 3 ML NEB RESP TX SCH ×7 (01:16→23:10)
[2020-01-01] MEDS: MORPHINE 4 MG/1 ML VIAL IV PRN (01:20)
[2020-01-01] MEDS: cefTAZidime 1,000 MG in SYRINGE 1 EACH IV SCH ×3 (03:43→21:17)
[2020-01-01 09:13] LABS: Basophils % 0.1 % (0.0-0.8); Eosinophils % 0.4 % (0.00-10.9); Hemoglobin 11.1 GM/DL (14.0-18.0); Immature Granulocytes % 0.9 %; Immature Granulocytes Absolute 0.09 #; Lymphocytes # 0.3 10*3/uL (1.4-4.0); Lymphocytes % 2.6 % (21.2-54.2); Mean Corpuscular HGB Conc 31.7 GM/DL (32-36); Mean Corpuscular Volume 113.6 FL (87-102); Mean Platelet Volume 9.5 FL (9.6-12.0); Monocytes % 10.7 % (1.7-12.7); Neutrophils % 85.3 % (38.7-73.9); Platelet Count 171 T/CUMM (130-400); Red Blood Count 3.08 MC/CUMM (3.8-5.5); White Blood Count 10.6 T/CUMM (4-12)
[2020-01-01 09:43] LABS: Osmolality,Calculated 267.4 MOS/KG (273-304)
[2020-01-01] MEDS: DILTIAZEM CD 240 MG CAPSULE PO SCH (09:45)
[2020-01-01] MEDS: APIXABAN 5 MG TABLET PO SCH ×2 (09:45→21:17)
[2020-01-01] MEDS: FLUCONAZOLE 100 MG TABLET PO SCH (09:46)
[2020-01-01] MEDS: MULTIVITAMIN (CENTRUM) TABLET PO SCH (09:46)
[2020-01-01] MEDS: ASCORBIC ACID 500 MG TABLET PO SCH ×2 (09:46→21:17)
[2020-01-01] MEDS: PANTOPRAZOLE 40 MG TABLET PO SCH (09:46)
[2020-01-01] MEDS: METOPROLOL TARTRATE 25 MG TABLET PO SCH ×2 (09:46→21:17)
[2020-01-01] MEDS: FOLIC ACID 1 MG TABLET PO SCH (09:46)
[2020-01-01] MEDS: predniSONE 20 MG TABLET PO SCH (09:46)
[2020-01-01] MEDS: BENZONATATE 100 MG CAPSULE PO SCH ×3 (09:46→21:17)
[2020-01-01] MEDS: THIAMINE 100 MG TABLET PO SCH (09:46)
[2020-01-01 10:04] LABS: Band Neutrophils 2 % (0-10); Lymphocytes 2 % (20-55); Segmented Neutrophils 89 % (50-85); Total Cells Counted 100
[2020-01-01 10:05] LABS: Anisocytosis 2+; Macrocytosis 2+; Platelet Estimate Normal; Target Cells Few
[2020-01-01] MEDS: LEVOFLOXACIN INJ 500 MG in PREMIX 1 EACH IV SCH (13:03)
[2020-01-01] MEDS: SIMETHICONE CHEW 80 MG TABLET PO PRN (13:03)
[2020-01-02] MEDS: ALBUTEROL/IPRATROPIUM 3 ML NEB RESP TX SCH ×3 (02:47→11:24)
[2020-01-02] MEDS: cefTAZidime 1,000 MG in SYRINGE 1 EACH IV SCH ×2 (04:18→11:46)
[2020-01-02 05:10] LABS: Eosinophils % 0.2 % (0.00-10.9); Hemoglobin 10.2 GM/DL (14.0-18.0); Immature Granulocytes % 1.2 %; Immature Granulocytes Absolute 0.13 #; Lymphocytes # 0.2 10*3/uL (1.4-4.0); Lymphocytes % 1.9 % (21.2-54.2); Mean Corpuscular HGB Conc 31.9 GM/DL (32-36); Mean Corpuscular Volume 113.9 FL (87-102); Mean Platelet Volume 9.5 FL (9.6-12.0); Monocytes % 7.4 % (1.7-12.7); Neutrophils % 89.3 % (38.7-73.9); Platelet Count 151 T/CUMM (130-400); Red Blood Count 2.81 MC/CUMM (3.8-5.5); Red Cell Distribution Width 13.8 % (9.3-17.3); White Blood Count 10.8 T/CUMM (4-12)
[2020-01-02 05:28] LABS: Osmolality,Calculated 270.4 MOS/KG (273-304)
[2020-01-02 06:42] LABS: Lymphocytes 3 % (20-55); Segmented Neutrophils 88 % (50-85); Total Cells Counted 100
[2020-01-02 06:43] LABS: Hypochromasia 2+; Platelet Estimate Normal
[2020-01-02] MEDS: APIXABAN 5 MG TABLET PO SCH (08:45)
[2020-01-02] MEDS: FOLIC ACID 1 MG TABLET PO SCH (08:46)
[2020-01-02] MEDS: FLUCONAZOLE 100 MG TABLET PO SCH (08:46)
[2020-01-02] MEDS: predniSONE 20 MG TABLET PO SCH (08:46)
[2020-01-02] MEDS: THIAMINE 100 MG TABLET PO SCH (08:46)
[2020-01-02] MEDS: PANTOPRAZOLE 40 MG TABLET PO SCH (08:46)
[2020-01-02] MEDS: DILTIAZEM CD 240 MG CAPSULE PO SCH (08:47)
[2020-01-02] MEDS: METOPROLOL TARTRATE 25 MG TABLET PO SCH (08:47)
[2020-01-02] MEDS: MULTIVITAMIN (CENTRUM) TABLET PO SCH (08:48)
[2020-01-02] MEDS: ASCORBIC ACID 500 MG TABLET PO SCH (08:48)
[2020-01-02] MEDS: BENZONATATE 100 MG CAPSULE PO SCH ×2 (08:48→15:36)
[2020-01-02] MEDS ORDERED: POLYETHYLENE GLYCOL POWDER 17 GM PACK PO SCH (09:30)
[2020-01-02] MEDS: LEVOFLOXACIN INJ 500 MG in PREMIX 1 EACH IV SCH (14:20)
[2020-01-02 17:28] VITALS: BP 122/76
== END 2020-01-02 18:41 | disposition home or self-care (01) | DRG 177 ==
LOC: N.ED 10:00 → SUATTDRO 12:12 → N.EDINP 12:12 → N.CC 14:34 → N.TELEN 12-17 14:34
PROVIDERS: ADMIT Internal Medicine; ATTEND Family Medicine
PROC: BRONCHB (2019-12-25 09:05)

== ENCOUNTER 2022-04-14 16:06 | Inpatient (IN) ==
[2022-04-14] MEDS ORDERED: SODIUM CHLORIDE 0.9% 1,000 ML IV STA ×2 (16:40→19:08)
[2022-04-14 17:07] LABS: Basophils % 0.6 % (0.0-0.8); Eosinophils # 0.1 10*3/uL (0.0-0.87); Hematocrit 33.5 VOL% (42.0-52.0); Hemoglobin 11.1 GM/DL (14.0-18.0); Immature Granulocytes % 1.3 %; Immature Granulocytes Absolute 0.09 #; Lymphocytes # 0.6 10*3/uL (1.4-4.0); Lymphocytes % 8.5 % (21.2-54.2); Mean Corpuscular HGB Conc 33.1 GM/DL (32-36); Mean Corpuscular Volume 102.4 FL (87-102); Mean Platelet Volume 9.2 FL (9.6-12.0); Monocytes # 0.6 10*3/uL (0.11-0.8); Monocytes % 8.6 % (1.7-12.7); Platelet Count 368 T/CUMM (130-400); Red Blood Count 3.27 MC/CUMM (3.8-5.5); Red Cell Distribution Width 12.4 % (9.3-17.3)
[2022-04-14 17:24] LABS: Bilirubin,Total 0.5 MG/DL (0.20-1.00); Calcium 11.2 MG/DL (8.5-10.1); Osmolality,Calculated 269.1 MOS/KG (273-304); Potassium 3.6 MMOL/L (3.5-5.1); Total Protein 8.3 G/DL (6.4-8.2)
[2022-04-14 19:05] LABS: Mucus,Urine Occasional /LPF (Occasional); RBC,Urine 4 /HPF (0-4)
[2022-04-14 19:07] LABS: Glucose,Urine (UA) Negative (Negative); Ketones,Urine 40 mg/dL (Negative); Protein,Urine Trace mg/dL (Negative); Urine Appearance Clear (Clear); Urine Color Yellow (Yellow)
[2022-04-14 19:08] LABS: Bilirubin,Urine Small mg/dL (Negative); Blood, Urine Trace mg/dL (Negative); Nitrite,Urine Negative (Negative)
[2022-04-14] MEDS ORDERED: CALCIUM CARBONATE CHEW 500 MG TABLET PO PRN (19:38)
[2022-04-14] MEDS ORDERED: ONDANSETRON 4 MG/2 ML VIAL IV PRN (19:38)
[2022-04-14] MEDS ORDERED: ACETAMINOPHEN 325 MG TABLET PO PRN (19:38)
[2022-04-14] MEDS ORDERED: guaiFENesin/DM ER 600-30 MG TABLET PO PRN (19:38)
[2022-04-14] MEDS: MAGNESIUM CHLORIDE 64 MG TABLET PO SCH (22:35)
[2022-04-14] MEDS: LACTATED RINGERS 1,000 ML IV SCH (22:36)
[2022-04-14] MEDS: GABAPENTIN 300 MG CAPSULE PO SCH (22:36)
[2022-04-14] MEDS: ATORVASTATIN 20 MG TABLET PO SCH (22:36)
[2022-04-15] MEDS: ALBUTEROL/IPRATROPIUM 3 ML NEB RESP TX SCH ×5 (01:50→20:16)
[2022-04-15 05:23] LABS: Basophils % 0.6 % (0.0-0.8); Eosinophils # 0.1 10*3/uL (0.0-0.87); Eosinophils % 1.7 % (0.00-10.9); Hematocrit 28.2 VOL% (42.0-52.0); Hemoglobin 9.2 GM/DL (14.0-18.0); Immature Granulocytes % 1.1 %; Immature Granulocytes Absolute 0.06 #; Lymphocytes # 0.6 10*3/uL (1.4-4.0); Lymphocytes % 10.6 % (21.2-54.2); Mean Corpuscular HGB Conc 32.6 GM/DL (32-36); Mean Corpuscular Volume 103.7 FL (87-102); Mean Platelet Volume 9.8 FL (9.6-12.0); Monocytes # 0.7 10*3/uL (0.11-0.8); Monocytes % 13.1 % (1.7-12.7); Neutrophils % 72.9 % (38.7-73.9); Platelet Count 254 T/CUMM (130-400); Red Blood Count 2.72 MC/CUMM (3.8-5.5); Red Cell Distribution Width 12.6 % (9.3-17.3); White Blood Count 5.3 T/CUMM (4-12)
[2022-04-15 05:50] LABS: Osmolality,Calculated 275.4 MOS/KG (273-304); Potassium 3.6 MMOL/L (3.5-5.1)
[2022-04-15] MEDS: MAGNESIUM CHLORIDE 64 MG TABLET PO SCH ×2 (09:33→20:10)
[2022-04-15] MEDS: LACTATED RINGERS 1,000 ML IV SCH ×2 (09:34→20:09)
[2022-04-15] MEDS: TAMSULOSIN 0.4 MG CAPSULE PO SCH (09:34)
[2022-04-15] MEDS: PANTOPRAZOLE 40 MG TABLET PO SCH (09:34)
[2022-04-15] MEDS: FOLIC ACID 1 MG TABLET PO SCH (09:34)
[2022-04-15 11:35] LABS: INR 1.1; PT Patient Result 12.1 SECS (10.5-12.0)
[2022-04-15] MEDS: HEPARIN DRIP 25,000 UNITS/500 ML PREMIX IV SCH (18:09)
[2022-04-15] MEDS: ATORVASTATIN 20 MG TABLET PO SCH (20:10)
[2022-04-15] MEDS: GABAPENTIN 300 MG CAPSULE PO SCH (20:10)
[2022-04-15] MEDS: PRIMIDONE 50 MG TABLET PO SCH (20:10)
[2022-04-16] MEDS: ALBUTEROL/IPRATROPIUM 3 ML NEB RESP TX SCH ×4 (00:05→19:22)
[2022-04-16] MEDS: LACTATED RINGERS 1,000 ML IV SCH ×2 (06:08→16:07)
[2022-04-16 06:18] LABS: Basophils % 0.2 % (0.0-0.8); Eosinophils # 0.1 10*3/uL (0.0-0.87); Eosinophils % 1.9 % (0.00-10.9); Hematocrit 26.9 VOL% (42.0-52.0); Hemoglobin 8.8 GM/DL (14.0-18.0); Immature Granulocytes % 0.7 %; Immature Granulocytes Absolute 0.04 #; Lymphocytes # 0.4 10*3/uL (1.4-4.0); Lymphocytes % 7.8 % (21.2-54.2); Mean Corpuscular HGB Conc 32.7 GM/DL (32-36); Mean Corpuscular Volume 102.7 FL (87-102); Mean Platelet Volume 9.6 FL (9.6-12.0); Monocytes # 0.6 10*3/uL (0.11-0.8); Monocytes % 10.4 % (1.7-12.7); Platelet Count 245 T/CUMM (130-400); Red Blood Count 2.62 MC/CUMM (3.8-5.5); Red Cell Distribution Width 12.7 % (9.3-17.3); White Blood Count 5.4 T/CUMM (4-12)
[2022-04-16 06:28] LABS: INR 1.2; PT Patient Result 12.6 SECS (10.5-12.0)
[2022-04-16 06:34] LABS: Calcium 9.8 MG/DL (8.5-10.1); Osmolality,Calculated 282.8 MOS/KG (273-304); Potassium 2.8 MMOL/L (3.5-5.1)
[2022-04-16] MEDS: PANTOPRAZOLE 40 MG TABLET PO SCH (08:29)
[2022-04-16] MEDS: TAMSULOSIN 0.4 MG CAPSULE PO SCH (08:29)
[2022-04-16] MEDS: FOLIC ACID 1 MG TABLET PO SCH (08:29)
[2022-04-16] MEDS: MAGNESIUM CHLORIDE 64 MG TABLET PO SCH ×2 (08:29→21:02)
[2022-04-16] MEDS: HEPARIN DRIP 25,000 UNITS/500 ML PREMIX IV SCH (16:07)
[2022-04-16] MEDS: ATORVASTATIN 20 MG TABLET PO SCH (21:02)
[2022-04-16] MEDS: PRIMIDONE 50 MG TABLET PO SCH (21:02)
[2022-04-16] MEDS: GABAPENTIN 300 MG CAPSULE PO SCH (21:02)
[2022-04-17] MEDS: ALBUTEROL/IPRATROPIUM 3 ML NEB RESP TX SCH ×3 (00:55→19:08)
[2022-04-17] MEDS: LACTATED RINGERS 1,000 ML IV SCH ×3 (02:50→21:46)
[2022-04-17] MEDS: FOLIC ACID 1 MG TABLET PO SCH (08:59)
[2022-04-17] MEDS: PANTOPRAZOLE 40 MG TABLET PO SCH (08:59)
[2022-04-17] MEDS: TAMSULOSIN 0.4 MG CAPSULE PO SCH (08:59)
[2022-04-17] MEDS: MAGNESIUM CHLORIDE 64 MG TABLET PO SCH ×2 (08:59→21:48)
[2022-04-17] MEDS ORDERED: POTASSIUM CHLORIDE 20 MEQ TABLET PO ONE (13:00)
[2022-04-17] MEDS: HEPARIN DRIP 25,000 UNITS/500 ML PREMIX IV SCH (16:01)
[2022-04-17] MEDS: GABAPENTIN 300 MG CAPSULE PO SCH (21:48)
[2022-04-17] MEDS: PRIMIDONE 50 MG TABLET PO SCH (21:49)
[2022-04-17] MEDS: ATORVASTATIN 20 MG TABLET PO SCH (21:49)
[2022-04-18] MEDS: ALBUTEROL/IPRATROPIUM 3 ML NEB RESP TX SCH ×5 (00:52→21:15)
[2022-04-18 05:15] LABS: Basophils % 0.3 % (0.0-0.8); Eosinophils # 0.2 10*3/uL (0.0-0.87); Eosinophils % 3.1 % (0.00-10.9); Hematocrit 25.9 VOL% (42.0-52.0); Hemoglobin 8.4 GM/DL (14.0-18.0); Immature Granulocytes % 0.6 %; Immature Granulocytes Absolute 0.04 #; Lymphocytes # 0.5 10*3/uL (1.4-4.0); Lymphocytes % 7.2 % (21.2-54.2); Mean Corpuscular HGB Conc 32.4 GM/DL (32-36); Mean Platelet Volume 10.7 FL (9.6-12.0); Monocytes # 0.8 10*3/uL (0.11-0.8); Monocytes % 12.7 % (1.7-12.7); Neutrophils % 76.1 % (38.7-73.9); Platelet Count 235 T/CUMM (130-400); Red Blood Count 2.49 MC/CUMM (3.8-5.5); Red Cell Distribution Width 12.8 % (9.3-17.3); White Blood Count 6.4 T/CUMM (4-12)
[2022-04-18 05:32] LABS: Calcium 10.2 MG/DL (8.5-10.1); Osmolality,Calculated 279.1 MOS/KG (273-304); Potassium 4.3 MMOL/L (3.5-5.1)
[2022-04-18] MEDS: PANTOPRAZOLE 40 MG TABLET PO SCH (09:10)
[2022-04-18] MEDS: FOLIC ACID 1 MG TABLET PO SCH (09:11)
[2022-04-18] MEDS: TAMSULOSIN 0.4 MG CAPSULE PO SCH (09:11)
[2022-04-18] MEDS: MAGNESIUM CHLORIDE 64 MG TABLET PO SCH ×2 (09:11→21:13)
[2022-04-18] MEDS: LACTATED RINGERS 1,000 ML IV SCH (09:12)
[2022-04-18] MEDS: HEPARIN DRIP 25,000 UNITS/500 ML PREMIX IV SCH (16:24)
[2022-04-18] MEDS: ATORVASTATIN 20 MG TABLET PO SCH (21:12)
[2022-04-18] MEDS: GABAPENTIN 300 MG CAPSULE PO SCH (21:13)
[2022-04-18] MEDS: PRIMIDONE 50 MG TABLET PO SCH (21:13)
[2022-04-19] MEDS: ALBUTEROL/IPRATROPIUM 3 ML NEB RESP TX SCH ×4 (01:00→19:17)
[2022-04-19] MEDS: LACTATED RINGERS 1,000 ML IV SCH ×2 (02:27→15:08)
[2022-04-19 05:42] LABS: Basophils % 0.4 % (0.0-0.8); Eosinophils # 0.3 10*3/uL (0.0-0.87); Eosinophils % 4.7 % (0.00-10.9); Hematocrit 26.9 VOL% (42.0-52.0); Hemoglobin 8.8 GM/DL (14.0-18.0); Immature Granulocytes % 1.1 %; Immature Granulocytes Absolute 0.06 #; Lymphocytes # 0.5 10*3/uL (1.4-4.0); Lymphocytes % 8.2 % (21.2-54.2); Mean Corpuscular HGB Conc 32.7 GM/DL (32-36); Mean Corpuscular Volume 103.5 FL (87-102); Mean Platelet Volume 11.2 FL (9.6-12.0); Monocytes # 0.8 10*3/uL (0.11-0.8); Monocytes % 13.6 % (1.7-12.7); Platelet Count 228 T/CUMM (130-400); Red Cell Distribution Width 12.9 % (9.3-17.3); White Blood Count 5.5 T/CUMM (4-12)
[2022-04-19 05:55] LABS: Calcium 9.8 MG/DL (8.5-10.1); Osmolality,Calculated 277.3 MOS/KG (273-304); Potassium 4.5 MMOL/L (3.5-5.1)
[2022-04-19] MEDS ORDERED: DIAZEPAM 5 MG TABLET PO ONE (09:41)
[2022-04-19] MEDS: MAGNESIUM CHLORIDE 64 MG TABLET PO SCH (13:46)
[2022-04-19] MEDS: PANTOPRAZOLE 40 MG TABLET PO SCH (13:46)
[2022-04-19] MEDS: TAMSULOSIN 0.4 MG CAPSULE PO SCH (13:46)
[2022-04-19] MEDS: FOLIC ACID 1 MG TABLET PO SCH (13:46)
[2022-04-19] MEDS: HEPARIN DRIP 25,000 UNITS/500 ML PREMIX IV SCH (16:17)
[2022-04-19] MEDS ORDERED: MAGNESIUM SULF RIDER 4 GM/100 ML PREMIX IV ONE (16:24)
[2022-04-19] MEDS: PRIMIDONE 50 MG TABLET PO SCH (21:35)
[2022-04-19] MEDS: MAGNESIUM OXIDE 400 MG TABLET PO SCH (21:35)
[2022-04-19] MEDS: GABAPENTIN 300 MG CAPSULE PO SCH (21:35)
[2022-04-19] MEDS: ATORVASTATIN 20 MG TABLET PO SCH (21:35)
[2022-04-19] MEDS: APIXABAN 5 MG TABLET PO SCH (21:36)
[2022-04-20] MEDS: ALBUTEROL/IPRATROPIUM 3 ML NEB RESP TX SCH ×3 (00:02→13:33)
[2022-04-20] MEDS: LACTATED RINGERS 1,000 ML IV SCH ×2 (01:08→11:48)
[2022-04-20 05:10] LABS: Basophils % 0.2 % (0.0-0.8); Eosinophils # 0.2 10*3/uL (0.0-0.87); Hematocrit 25.1 VOL% (42.0-52.0); Hemoglobin 7.9 GM/DL (14.0-18.0); Immature Granulocytes % 0.7 %; Immature Granulocytes Absolute 0.04 #; Lymphocytes # 0.4 10*3/uL (1.4-4.0); Lymphocytes % 7.3 % (21.2-54.2); Mean Corpuscular HGB Conc 31.5 GM/DL (32-36); Mean Corpuscular Volume 105.5 FL (87-102); Mean Platelet Volume 9.3 FL (9.6-12.0); Monocytes # 0.9 10*3/uL (0.11-0.8); Monocytes % 16.1 % (1.7-12.7); Neutrophils % 71.7 % (38.7-73.9); Platelet Count 249 T/CUMM (130-400); Red Blood Count 2.38 MC/CUMM (3.8-5.5); Red Cell Distribution Width 13.1 % (9.3-17.3); White Blood Count 5.7 T/CUMM (4-12)
[2022-04-20 05:24] LABS: Calcium 9.8 MG/DL (8.5-10.1); Osmolality,Calculated 280.1 MOS/KG (273-304); Potassium 3.8 MMOL/L (3.5-5.1)
[2022-04-20 05:35] LABS: Eosinophils 7 % (0-10); Hypochromia Slight; Lymphocytes 7 % (20-55); Platelet Estimate Adequate; Total Cells Counted 100
[2022-04-20] MEDS: PANTOPRAZOLE 40 MG TABLET PO SCH (09:10)
[2022-04-20] MEDS: DOCUSATE SODIUM 100 MG CAPSULE PO PRN (09:10)
[2022-04-20] MEDS: FOLIC ACID 1 MG TABLET PO SCH (09:10)
[2022-04-20] MEDS: TAMSULOSIN 0.4 MG CAPSULE PO SCH (09:10)
[2022-04-20] MEDS: MAGNESIUM OXIDE 400 MG TABLET PO SCH ×2 (09:10→21:21)
[2022-04-20] MEDS: APIXABAN 5 MG TABLET PO SCH ×2 (09:10→21:21)
[2022-04-20] MEDS ORDERED: SODIUM CHLORIDE 0.9% 500 ML IV ONE (14:02)
[2022-04-20] MEDS ORDERED: METOPROLOL SUCCINATE XL 25 MG TABLET PO ONE ×2 (15:00→17:05)
[2022-04-20] MEDS ORDERED: DIGOXIN 0.5 MG/2 ML AMP IV ONE (15:00)
[2022-04-20] MEDS: SODIUM CHLORIDE 0.9% 1,000 ML IV SCH (18:46)
[2022-04-20] MEDS: PRIMIDONE 50 MG TABLET PO SCH (21:21)
[2022-04-20] MEDS: GABAPENTIN 300 MG CAPSULE PO SCH (21:21)
[2022-04-20] MEDS: ATORVASTATIN 20 MG TABLET PO SCH (21:21)
[2022-04-21] MEDS: SODIUM CHLORIDE 0.9% 1,000 ML IV SCH ×2 (02:00→14:03)
[2022-04-21 06:18] LABS: Basophils % 0.3 % (0.0-0.8); Eosinophils # 0.3 10*3/uL (0.0-0.87); Eosinophils % 3.9 % (0.00-10.9); Hematocrit 26.1 VOL% (42.0-52.0); Hemoglobin 8.2 GM/DL (14.0-18.0); Immature Granulocytes % 0.5 %; Immature Granulocytes Absolute 0.03 #; Lymphocytes # 0.3 10*3/uL (1.4-4.0); Lymphocytes % 4.8 % (21.2-54.2); Mean Corpuscular HGB Conc 31.4 GM/DL (32-36); Mean Corpuscular Volume 106.5 FL (87-102); Mean Platelet Volume 9.5 FL (9.6-12.0); Neutrophils % 75.5 % (38.7-73.9); Platelet Count 296 T/CUMM (130-400); Red Blood Count 2.45 MC/CUMM (3.8-5.5); White Blood Count 6.7 T/CUMM (4-12)
[2022-04-21 06:32] LABS: Calcium 9.8 MG/DL (8.5-10.1); Osmolality,Calculated 280.1 MOS/KG (273-304); Potassium 4.1 MMOL/L (3.5-5.1)
[2022-04-21 06:47] LABS: Eosinophils 4 % (0-10); Lymphocytes 6 % (20-55); Platelet Estimate Adequate; Total Cells Counted 100
[2022-04-21] MEDS: APIXABAN 5 MG TABLET PO SCH (08:33)
[2022-04-21] MEDS: DOCUSATE SODIUM 100 MG CAPSULE PO PRN (08:33)
[2022-04-21] MEDS: PANTOPRAZOLE 40 MG TABLET PO SCH (08:33)
[2022-04-21] MEDS: MAGNESIUM OXIDE 400 MG TABLET PO SCH (08:33)
[2022-04-21] MEDS: FOLIC ACID 1 MG TABLET PO SCH (08:33)
[2022-04-21] MEDS ORDERED: METOPROLOL SUCCINATE XL 50 MG TABLET PO SCH (09:00)
[2022-04-21 11:48] VITALS: BP 107/74
[2022-04-21] MEDS ORDERED: DIGOXIN 0.125 MG TABLET PO SCH (13:00)
== END 2022-04-21 12:00 | disposition home health service (06) | DRG 640 ==
LOC: EDUNIT# → EDBD → N.ED 16:06 → N.EDINP 19:38 → SUATTDRO 19:38 → N.5E 22:25
PROVIDERS: ADMIT Internal Medicine; ATTEND Internal Medicine

== ENCOUNTER 2022-08-30 09:55 | Observation (INO) ==
[2022-08-30] MEDS ORDERED: SODIUM CHLORIDE 0.9% 1,000 ML IV STA (10:13)
[2022-08-30 10:50] LABS: Basophils % 0.4 % (0.0-0.8); Eosinophils % 0.6 % (0.00-10.9); Hematocrit 33.2 VOL% (42.0-52.0); Hemoglobin 11.2 GM/DL (14.0-18.0); Immature Granulocytes % 0.7 %; Immature Granulocytes Absolute 0.05 #; Lymphocytes # 0.1 10*3/uL (1.4-4.0); Lymphocytes % 1.8 % (21.2-54.2); Mean Corpuscular HGB Conc 33.7 GM/DL (32-36); Mean Corpuscular Volume 108.1 FL (87-102); Mean Platelet Volume 9.8 FL (9.6-12.0); Monocytes # 0.6 10*3/uL (0.11-0.8); Monocytes % 8.7 % (1.7-12.7); Neutrophils % 87.8 % (38.7-73.9); Platelet Count 147 T/CUMM (130-400); Red Blood Count 3.07 MC/CUMM (3.8-5.5); Red Cell Distribution Width 15.3 % (9.3-17.3); White Blood Count 7.1 T/CUMM (4-12)
[2022-08-30 11:03] LABS: Albumin 2.6 G/DL (3.4-5.0); Bilirubin,Total 0.8 MG/DL (0.20-1.00); Calcium 9.2 MG/DL (8.5-10.1); Osmolality,Calculated 273.5 MOS/KG (273-304); Potassium 3.6 MMOL/L (3.5-5.1); Total Protein 7.1 G/DL (6.4-8.2)
[2022-08-30 11:10] LABS: INR 1.1; Lymphocytes 2 % (20-55); Myelocytes 1 %; PT Patient Result 12.2 SECS (10.1-12.1); Partial Thromboplastin Time 29.4 SECS (23.7-32.9); Total Cells Counted 100
[2022-08-30 11:11] LABS: Macrocytosis Slight; Platelet Estimate Adequate; Target Cells Slight
[2022-08-30] MEDS ORDERED: ONDANSETRON 4 MG/2 ML VIAL IV PRN (12:49)
[2022-08-30] MEDS ORDERED: ALBUTEROL/IPRATROPIUM 3 ML NEB RESP TX PRN (12:49)
[2022-08-30] MEDS ORDERED: LORazepam 2 MG/1 ML VIAL IV PRN (12:54)
[2022-08-30 15:22] LABS: INR 1.1; PT Patient Result 11.6 SECS (10.1-12.1); Partial Thromboplastin Time 25.4 SECS (23.7-32.9)
[2022-08-30] MEDS: POLYETHYLENE GLYCOL POWDER 17 GM PACK PO SCH (15:30)
[2022-08-30] MEDS: LACTATED RINGERS 1,000 ML IV SCH (15:30)
[2022-08-30 16:33] LABS: Hematocrit 34.6 VOL% (42.0-52.0); Hemoglobin 11.5 GM/DL (14.0-18.0)
[2022-08-30] MEDS: DOCUSATE SODIUM 100 MG CAPSULE PO SCH (21:01)
[2022-08-30 22:31] LABS: Hematocrit 27.8 VOL% (42.0-52.0); Hemoglobin 9.5 GM/DL (14.0-18.0)
[2022-08-31] MEDS: LACTATED RINGERS 1,000 ML IV SCH ×2 (00:40→09:41)
[2022-08-31 06:18] LABS: Basophils % 0.2 % (0.0-0.8); Eosinophils # 0.1 10*3/uL (0.0-0.87); Eosinophils % 1.6 % (0.00-10.9); Hematocrit 27.6 VOL% (42.0-52.0); Hemoglobin 9.2 GM/DL (14.0-18.0); Immature Granulocytes % 0.4 %; Immature Granulocytes Absolute 0.02 #; Lymphocytes # 0.1 10*3/uL (1.4-4.0); Lymphocytes % 2.8 % (21.2-54.2); Mean Corpuscular HGB Conc 33.3 GM/DL (32-36); Mean Corpuscular Volume 108.2 FL (87-102); Mean Platelet Volume 9.8 FL (9.6-12.0); Monocytes # 0.6 10*3/uL (0.11-0.8); Monocytes % 11.5 % (1.7-12.7); Neutrophils % 83.5 % (38.7-73.9); Platelet Count 126 T/CUMM (130-400); Red Blood Count 2.55 MC/CUMM (3.8-5.5); Red Cell Distribution Width 15.3 % (9.3-17.3); White Blood Count 5.1 T/CUMM (4-12)
[2022-08-31 06:39] LABS: Calcium 8.2 MG/DL (8.5-10.1); Osmolality,Calculated 277.3 MOS/KG (273-304); Potassium 3.4 MMOL/L (3.5-5.1)
[2022-08-31 06:40] LABS: Eosinophils 4 % (0-10); Lymphocytes 2 % (20-55); Platelet Estimate Normal; Total Cells Counted 100
[2022-08-31 06:41] LABS: Macrocytosis Slight
[2022-08-31] MEDS: DOCUSATE SODIUM 100 MG CAPSULE PO SCH (08:38)
[2022-08-31] MEDS: POLYETHYLENE GLYCOL POWDER 17 GM PACK PO SCH (08:38)
[2022-08-31] MEDS ORDERED: THIAMINE 100 MG TABLET PO SCH (09:00)
[2022-08-31] MEDS ORDERED: FOLIC ACID 1 MG TABLET PO SCH (09:00)
[2022-08-31] MEDS ORDERED: PANTOPRAZOLE 40 MG TABLET PO SCH (09:00)
[2022-08-31] MEDS ORDERED: MULTIVITAMIN (CENTRUM) TABLET PO SCH (09:00)
[2022-08-31] MEDS ORDERED: guaiFENesin/DM ER 600-30 MG TABLET PO PRN (09:25)
[2022-08-31] MEDS ORDERED: POTASSIUM CHLORIDE 20 MEQ TABLET PO ONE (09:29)
[2022-08-31 16:20] VITALS: BP 119/73
[2022-08-31] MEDS ORDERED: HYDROCORTISONE 25 MG SUPP RECTAL SCH (21:00)
== END 2022-08-31 21:10 | disposition home or self-care (01) ==
LOC: N.ED 09:55 → N.EDINP 09:55 → SUATTDRO 12:49 → N.2W 13:26
PROVIDERS: ADMIT Internal Medicine; ATTEND Internal Medicine